=== PATIENT | female | born 1945 | race Caucasian/White ===

== ENCOUNTER 2016-09-22 23:16 | Inpatient (IN) | payer OTHER, MEDICAID ==
[2016-09-23] MEDS ORDERED: ROCEPHIN VIAL 1 GM 1 GM in NS 50 ML IV + SPIKE MINIBAG* 50 ML IV ONE (00:28)
[2016-09-23] MEDS ORDERED: NS 1000 ML 1,000 ML IV ONE (00:28)
--- NOTE | 2016-09-23 00:29 | DR.GENAD ---
HPI - PCP Primary Care Physician: boris - Complaint/Symptoms Chief Complaint Doctors Comments: Patient states has been doing good but family members states she has been having problems with her memory and everytime that happens she usually have cellulitis in her right leg. States she has been having nocturia x2 nightly. States she hit her head on the coffee table two days ago when she fell at home and she has been having a headache since. States she did not go to be evaluated after the fall. Family thinks the right leg is swollen and red compared to the left leg. Chief Complaint:: memory disoriented - Nurses notes reviewed Nurses Notes Review: Yes - Source History Provided: Patient, Family Member - Mode of Arrival Mode of Arrival: Ambulatory - Timing Onset of Chief Complaint: 09/22/16 Came on: Gradually - Duration Duration: Constant How lon Duration: Days - Location Location: diffuse headache - Severity Severity: Moderate - Modifying Factors Worsens:: nothing Improves:: nothing PMH - PMH Past Medical History: Yes Past Medical History: CVA, Dementia, Diabetes, Dyslipidemia, GERD, Hypertension Past Surgical History: No Surgical History: Unknown - Family History History of Family Medical Conditions: Yes Family Medical History: Diabetes Mellitus, Hypertension - Social History Does patient currently use any type of tobacco product: No Have you used tobacco products in the last 12 months: No Type of Tobacco Use: None Does any household member use tobacco: Yes Do you use any recreational Drugs:: No Lives With: Alone Lives Where: Home - infectious screening In the last 2 months have you had wt loss of >10#?: NO Have you had fever, night sweats or hemotysis?: No Have you traveled outside the country in the last 6 months?: No Isolation: Standard ROS - Review of Systems Constitutional: No Symptoms Reported, Fever, Weakness, Fatigue, Loss of Appetite. negative: See HPI, Chills, Diaphoresis, Malaise, Irritable, Other Eyes: No Symptoms Reported ENTM: No Symptoms Reported, Nose Discharge, Nose Congestion. negative: See HPI , Ear Pain, Ear Discharge, Pulling on Ears, Hearing Loss, Nose Pain, Epistaxis, Mouth Pain, Mouth Swelling, Loose Teeth, Drooling, Throat Pain, Throat Swelling , Ear Foreign Body Respiratoy: No Symptoms Reported. negative: See HPI, Productive Cough, Non- Productive Cough, Moist Cough, Dry Cough, Hacking Cough, Barking Cough, Brassy Cough, Orthopnea, Short of Breath, Stridor, Wheezing, Hemoptysis, Other Cardiovascular: No Symptoms Reported. negative: See HPI, Chest Pain, Edema, Palpitations, Syncope, Cyanosis, Skin Mottling, Other Gastrointestinal/Abdominal: No Symptoms Reported Genitourinary: No Symptoms Reported, Dysuria, Frequency. negative: See HPI, Discharge, Hematuria, Pain, Bleeding, Other Neurological: No Symptoms Reported, Headache, Weakness, Problems Walking. negative: See HPI, Anxiety, Depressed, Emotional Problems, Numbness, Paresthesia , Pre-existing Deficit, Seizure, Tingling, Tremors, Dizziness, Speech Problem, Other Musculoskeletal: No Symptoms Reported Integumentary: No Symptoms Reported Hematologic/Lymphatic: No Symptoms Reported Endocrine: No Symptoms Reported Psychiatric: No Symptoms Reported PE - Vital Signs Vitals: Temperature 101.7 F Pulse Rate 114 Respiratory Rate 16 Blood Pressure [Left Arm] 181/80 Blood Pressure [Right Arm] 105/54 Blood Pressure 163/81 O2 Sat by Pulse Oximetry 99 - General Limitations: No Limitations General Appearance: Alert, In No Apparent Distress - Head Head Exam: Normal Inspection, Atraumatic, Normocephalic - Eyes Eye exam: Normal Appearance, PERRL, EOMI. negative: Scleral Icterus, Conjunctival Injection, Nystagmus, Miosis, Mydrasis, Periorbital Swelling, Periorbital Tenderness, Other - ENT ENT Exam: Normal Exam, Normal Oropharynx, Normal External Ear Exam, Mucous Membranes Moist, TM's Normal Bilaterally External Ear Exam: Normal External Inspection TM/Canal Exam: Bilateral Normal Nose Exam: Normal Nose Exam Mouth Exam: Normal Inspection Throat Exam: Normal Inspection - Neck Neck Exam: Normal Inspection, Full ROM, Trachea Midline. negative: Tenderness, Meningismus, Lymphadenopathy, Thyromegaly, Other - Chest Chest Inspection: Normal Inspection, Symmetric Chest Wall Rise. negative: Tenderness, Rash, Abscess, Other - Respiratory Respiratory Exam: Normal Lung Sounds Bilat Respiratory Exam: Bilateral Clear to Auscultation - Cardiovascular Cardiovascular Exam: Regular Rate, Normal Rhythm, Normal Heart Sounds. negative : Bradycardia, Tachycardia, Irregular Rhythm, Systolic Murmur, Diastolic Murmur , Rubs, Gallop, Clicks, JVD, +S1, +S2, +S3, +S4, Other - Abdominal Exam Abdominal Exam: Normal Inspection, Normal Bowel Sounds, Soft Abdominal Tenderness: Suprapubic, Mild. negative: RUQ, RLQ, LUQ, LLQ, Epigastrium, Diffuse, Moderate, Severe, Other - Extremities Extremities Exam: Normal Inspection, Full ROM, Normal Capillary Refill. negative: Tenderness, Edema, Joint Swelling, Calf Tenderness, Other - Back Back Exam: Normal Inspection, Full ROM - Neurologic Neurological Exam: Alert, Oriented X3, CN II-XII Intact, Reflexes Normal. negative: Normal Gait (gait not tested) - Psychiatric Psychiatric Exam: Normal Affect, Normal Mood. negative: Depressed, Agitated, Anxious, Flat Affect, Manic, Homicidal Ideation, Suicidal Ideation, Other - Skin Skin Exam: Warm, Dry, Intact, Normal Color. negative: Rash, Cyanosis, Diaphoresis, Erythema, Pallor, Mottled, Other Course - Reevaluation 1st: Improved - Consultation Called: 03:02 Call Returned: 03:02 (Dr. Rivera to admit) - Education/Counseling Education/Counseling: Patient, Family Educated On: Treatment, Diagnosis, Prognosis, Needs for Follow Up ROR - Labs Reviewed Laboratory Results Reviewed?: Yes (All labs and x-ray results reviewed and discussed with patient and family) Result Diagrams: 09/23/16 00:40 09/23/16 00:40 Laboratory: WBC 24.2 X10^3/uL (3.6-10.0) H* 09/23/16 00:40 RBC 4.47 X10^6/uL (3.5-5.4) 09/23/16 00:40 Hgb 10.6 g/dL (12.0-16.0) L 09/23/16 00:40 Hct 33.7 % (36.0-47.0) L 09/23/16 00:40 MCV 75.4 fL (80.0-100.0) L 09/23/16 00:40 MCH 23.8 pg (27.0-34.0) L 09/23/16 00:40 MCHC 31.6 g/dL (33.0-35.0) L 09/23/16 00:40 RDW 18.7 % (11.6-16.5) H 09/23/16 00:40 Plt Count 283 X10^3/uL (150.0-450.0) 09/23/16 00:40 Plt Count Comment Adequate (ADEQUATE) 09/23/16 00:40 MPV 8.2 fL (7.4-11.0) 09/23/16 00:40 Neut % 92.6 % (42.0-75.0) H 09/23/16 00:40 Lymph % 2.6 % (21.0-51.0) L 09/23/16 00:40 [place] % 4.6 % (0.0-13.0) 09/23/16 00:40 Eos % 0.0 % (0.9-2.9) L 09/23/16 00:40 Baso % 0.2 % (0.2-1.0) 09/23/16 00:40 Neut # 22.4 x10^3/uL (2.2-4.8) H 09/23/16 00:40 Lymph # 0.6 X10^3/uL (1.3-2.9) L 09/23/16 00:40 [place] # 1.1 x10^3/uL (0.3-0.8) H 09/23/16 00:40 Eos # 0.0 x10^3/uL (0.0-0.2) 09/23/16 00:40 Baso # 0.1 X10^3/uL (0.0-0.1) 09/23/16 00:40 Absolute Nucleated RBC 0.0 /100WBC 09/23/16 00:40 Total Counted 100 09/23/16 00:40 Neutrophils % (Manual) 92 % (39-76) H 09/23/16 00:40 Band Neutrophils % 3 % (0-10) 09/23/16 00:40 Lymphocytes % (Manual) 3 % (13-43) L 09/23/16 00:40 Monocytes % (Manual) 2 % (4-9) L 09/23/16 00:40 Plt Morphology Comment Normal (NORMAL) 09/23/16 00:40 RBC Morphology Abnormal (NORMAL) A 09/23/16 00:40 Hypochromasia 1+ A 09/23/16 00:40 Anisocytosis Slight A 09/23/16 00:40 INR Target Range - 09/23/16 00:40 INR 0.98 (0.8-1.3) 09/23/16 00:40 PTT 26.8 SECONDS (22.9-36.5) 09/23/16 00:40 PTT Comment - 09/23/16 00:40 Sodium 137 mmol/L (136-145) 09/23/16 00:40 Corrected Sodium 141 mmol/L (136-145) 09/23/16 00:40 Potassium 3.6 mmol/L (3.5-5.1) 09/23/16 00:40 Chloride 100 mmol/L (98-107) 09/23/16 00:40 Carbon Dioxide 24.9 mmol/L (21-32) 09/23/16 00:40 BUN 11 mg/dL (7-18) 09/23/16 00:40 Creatinine 1.31 mg/dL (0.55-1.02) H 09/23/16 00:40 Est GFR (MDRD) Af Amer 51 (>60) L 09/23/16 00:40 Est GFR (MDRD) Non-Af 43 (>60) L 09/23/16 00:40 Glucose 270 mg/dL (65-99) H 09/23/16 00:40 Calcium 8.3 mg/dL (8.5-10.1) L 09/23/16 00:40 Corrected Calcium TNP 09/23/16 00:40 Magnesium 1.1 mg/dL (1.7-2.9) L 09/23/16 00:40 Total Bilirubin 0.40 mg/dL (0.2-1.0) 09/23/16 00:40 AST 14 Units/L (15-37) L 09/23/16 00:40 ALT 16 Units/L (12-78) 09/23/16 00:40 Alkaline Phosphatase 52 Units/L (46-116) 09/23/16 00:40 Creatine Kinase 87 Units/L (26-192) 09/23/16 00:40 CK-MB (CK-2) < 1.0 ng/mL (0-4.0) 09/23/16 00:40 CK/CKMB % Calc 1.2 % (<4) 09/23/16 00:40 Troponin I < 0.02 ng/mL (0-1.5) 09/23/16 00:40 Total Protein 8.0 g/dL (6.4-8.2) 09/23/16 00:40 Albumin 3.7 g/dL (3.4-5.0) 09/23/16 00:40 Globulin 4.3 g/dL (2.5-4.5) 09/23/16 00:40 Albumin/Globulin Ratio 0.9 Ratio (1.1-2.1) L 09/23/16 00:40 Amylase 32 Units/L (25-115) 09/23/16 00:40 Lipase 120 Units/L (73-393) 09/23/16 00:40 Specimen Type Clean catch urine 09/23/16 01:31 Urine Color Yellow (YELLOW) 09/23/16 01:31 Urine Appearance Clear (CLEAR) 09/23/16 01:31 Urine pH 5.0 (5.0 - 8.0) 09/23/16 01:31 Ur Specific [place] 1.015 (1.000-1.030) 09/23/16 01:31 Urine Protein 1+ (NEGATIVE) 09/23/16 01:31 Urine Glucose (UA) 3+ (NEGATIVE) 09/23/16 01:31 Urine Ketones Negative (NEGATIVE) 09/23/16 01:31 Urine Occult Blood 1+ (NEGATIVE) 09/23/16 01:31 Urine Nitrite Negative (NEGATIVE) 09/23/16 01:31 Urine Bilirubin Negative (NEGATIVE) 09/23/16 01:31 Urine Urobilinogen Normal (NORMAL) 09/23/16 01:31 Ur Leukocyte Esterase 1+ (NEGATIVE) 09/23/16 01:31 Urine RBC 0-3 /HPF (NEGATIVE) 09/23/16 01:31 Urine WBC 2-6 /HPF (NEGATIVE) 09/23/16 01:31 Ur Squamous Epith Cells Few /HPF (NEGATIVE) 09/23/16 01:31 Urine Bacteria Trace /HPF (NEGATIVE) 09/23/16 01:31 Ur Culture Indicated? Yes/culture set up 09/23/16 01:31 Urine Opiates Screen Negative (NEG=<300) 09/23/16 01:31 Urine Methadone Screen Negative (NEG=<300) 09/23/16 01:31 Ur Barbiturates Screen Negative (NEG=<200) 09/23/16 01:31 Ur Phencyclidine Scrn Negative (NEG=<25) 09/23/16 01:31 Ur Amphetamines Screen Negative (NEG=<1000) 09/23/16 01:31 U Benzodiazepines Scrn Negative (NEG=<200) 09/23/16 01:31 Urine Cocaine Screen Negative (NEG=<300) 09/23/16 01:31 U Marijuana (THC) Screen Negative (NEG=<50) 09/23/16 01:31 Streptococcus Screen Positive (NEGATIVE) A 09/23/16 01:31 - XRAY XRAY Interpreted by: Radiologist (CT head: unchanged atrophy and microangiopathy. No acute intracranial abnormality) XRAY Findings: CXR: cardiomegaly, hiatal hernia and COPD - Diagnosis Discharge Problem: Cellulitis of right leg, Microcytic anemia, Diabetes mellitus, Essential hypertension, Chronic kidney disease, SIRS (systemic inflammatory response syndrome), COPD (chronic obstructive pulmonary disease), Streptococcus pharyngitis Leukocytosis Qualifiers: Leukocytosis type: unspecified Qualified Code(s): D72.829 - Elevated white blood cell count, unspecified - Discharge Plan Disposition: 09 ADMITTED INPATIENT Condition: Stable - Follow ups/Referrals Follow ups/Referrals: Micheal Neir [Primary Care Provider] - 3 days - Instructions
[2016-09-23] MEDS ORDERED: NS 1000 ML 1,000 ML ONE (00:33)
[2016-09-23] MEDS ORDERED: ROCEPHIN VIAL 1 GM ONE (00:34)
[2016-09-23] MEDS ORDERED: NS 50 ML IV + SPIKE MINIBAG* 50 ML IV ONE (00:35)
[2016-09-23 01:00] LABS: BASOPHILS # (AUTO) 0.1 X10^3/uL (0.0-0.1); BASOPHILS % (AUTO) 0.2 % (0.2-1.0); HEMATOCRIT 33.7 % (36.0-47.0); HEMOGLOBIN 10.6 g/dL (12.0-16.0); LYMPHOCYTES # (AUTO) 0.6 X10^3/uL (1.3-2.9); LYMPHOCYTES % (AUTO) 2.6 % (21.0-51.0); MEAN CORPUSCULAR HEMOGLOBIN 23.8 pg (27.0-34.0); MEAN CORPUSCULAR HGB CONC 31.6 g/dL (33.0-35.0); MEAN CORPUSCULAR VOLUME 75.4 fL (80.0-100.0); MEAN PLATELET VOLUME 8.2 fL (7.4-11.0); MONOCYTES # (AUTO) 1.1 x10^3/uL (0.3-0.8); MONOCYTES % (AUTO) 4.6 % (0.0-13.0); NEUTROPHILS # (AUTO) 22.4 x10^3/uL (2.2-4.8); NEUTROPHILS % (AUTO) 92.6 % (42.0-75.0); PLATELET COUNT 283 X10^3/uL (150.0-450.0); RED BLOOD COUNT 4.47 X10^6/uL (3.5-5.4); RED CELL DISTRIBUTION WIDTH 18.7 % (11.6-16.5)
[2016-09-23 01:12] LABS: BLOOD UREA NITROGEN 11 mg/dL (7-18); CALCIUM 8.3 mg/dL (8.5-10.1); CARBON DIOXIDE 24.9 mmol/L (21-32); CHLORIDE 100 mmol/L (98-107); COR NA(FOR HYPERGLY) 141 mmol/L (136-145); CREATININE 1.31 mg/dL (0.55-1.02); GLUCOSE 270 mg/dL (65-99); SODIUM 137 mmol/L (136-145); TROPONIN I < 0.02 ng/mL (0-1.5); WHITE BLOOD COUNT 24.2 X10^3/uL (3.6-10.0); eGFR BLACK RACES 51 (>60); eGFR NON BLACK RACES 43 (>60)
[2016-09-23] MEDS ORDERED: TYLENOL 325 MG TAB PO ONE ×2 (01:15→01:17)
[2016-09-23 01:16] LABS: ALANINE AMINOTRANSFERASE 16 Units/L (12-78); ALBUMIN 3.7 g/dL (3.4-5.0); ALKALINE PHOSPHATASE 52 Units/L (46-116); AMYLASE 32 Units/L (25-115); ASPARTATE AMINO TRANSFERASE 14 Units/L (15-37); CKMB % 1.2 % (<4); CREATINE KINASE 87 Units/L (26-192); CREATINE KINASE MB < 1.0 ng/mL (0-4.0); LIPASE 120 Units/L (73-393); MAGNESIUM 1.1 mg/dL (1.7-2.9)
[2016-09-23 01:23] LABS: ANISOCYTOSIS SLIGHT; BAND NEUTROPHILS % 3 % (0-10); HYPOCHROMASIA 1+; PLATELET MORPHOLOGY COMMENT NORMAL (NORMAL)
[2016-09-23 01:48] LABS: BILIRUBIN,URINE NEGATIVE (NEGATIVE); BLOOD/HEMOGLOBIN,URINE 1+ (NEGATIVE); GLUCOSE, URINE 3+ (NEGATIVE); KETONES,URINE NEGATIVE (NEGATIVE); LEUKOCYTE ESTERASE ,URINE 1+ (NEGATIVE); NITRITES,URINE NEGATIVE (NEGATIVE); PROTEIN,URINE 1+ (NEGATIVE); UROBILINOGEN,URINE NORMAL (NORMAL)
--- NOTE | 2016-09-23 01:57 | CT ---
CT head without contrast Indication: Pain after fall 2 days prior. Comparison: October 08, [address] and April 03, 2016 MR brain. Technique: Axial images from the skullbase to the vertex without contrast. Coronal and sagittal refo rmats provided. Findings: There is no acute intracranial hemorrhage, mass or mass effect. No extra-axial fluid colle ction or abnormal area of hypoattenuation to suggest infarction seen. Ventricles and sulci show ex v acuo enlargement. Periventricular white matter hypoattenuation is noted. Review of bone windows show s no osseous lesion. Paranasal sinuses and mastoid air cells are clear where visualized. No fracture seen. Impression: 1. Unchanged atrophy and microangiopathy, similar to the prior. 2. No acute intracranial abnormality otherwise. Reported By:
[2016-09-23 02:13] LABS: APPEARANCE,URINE CLEAR (CLEAR); BACTERIA,URINE TRACE /HPF (NEGATIVE); COLOR,URINE YELLOW (YELLOW); RBC,URINE 0-3 /HPF (NEGATIVE); SQUAMOUS EPITHELIAL CELL,UR FEW /HPF (NEGATIVE)
[2016-09-23] MEDS ORDERED: VANCOMYCIN HCL 1 GM VIAL IV STA (03:03)
--- NOTE | 2016-09-23 03:05 | RAD ---
Chest AP portable Indication: Fever and altered mental status. Findings: There is hiatal hernia. There is cardiomegaly. Pleural thickening is seen in the apex bila terally. COPD change suggested. No large pneumothorax or consolidation seen. Impression: Cardiomegaly, hiatal hernia and COPD change pleural thickening in the apex is bilaterall y. Reported By:
[2016-09-23] MEDS ORDERED: VANCOMYCIN 1 GM PREMIX (ADDVANTAGE) 250 ML IV ONE (03:24)
[2016-09-23] MEDS ORDERED: NORCO 5/325 MG TAB PO PRN (03:26)
[2016-09-23] MEDS ORDERED: PHENERGAN TAB 25 MG PO PRN (03:26)
[2016-09-23] MEDS ORDERED: MOTRIN TAB 600 MG PO PRN (03:26)
[2016-09-23 04:57] VITALS: BMI 28.5
[2016-09-23 06:10] LABS: BASOPHILS # (AUTO) 0.1 X10^3/uL (0.0-0.1); PLATELET COUNT 274 X10^3/uL (150.0-450.0)
[2016-09-23 06:22] LABS: BASOPHILS % (AUTO) 0.4 % (0.2-1.0); HEMATOCRIT 31.2 % (36.0-47.0); HEMOGLOBIN 10.1 g/dL (12.0-16.0); LYMPHOCYTES % (AUTO) 4.2 % (21.0-51.0); MEAN CORPUSCULAR HEMOGLOBIN 24.3 pg (27.0-34.0); MEAN CORPUSCULAR HGB CONC 32.3 g/dL (33.0-35.0); MEAN CORPUSCULAR VOLUME 75.1 fL (80.0-100.0); MEAN PLATELET VOLUME 8.6 fL (7.4-11.0); MONOCYTES % (AUTO) 4.2 % (0.0-13.0); NEUTROPHILS # (AUTO) 22.4 x10^3/uL (2.2-4.8); NEUTROPHILS % (AUTO) 91.2 % (42.0-75.0); RED BLOOD COUNT 4.16 X10^6/uL (3.5-5.4); RED CELL DISTRIBUTION WIDTH 19.1 % (11.6-16.5)
[2016-09-23] MEDS: NS 1/2 1000 ML IV 1,000 ML IV SCH ×3 (06:25→21:32)
[2016-09-23] MEDS ORDERED: NS 100 ML IV + SPIKE MINIBAG* 100 ML IV ONE (06:31)
[2016-09-23] MEDS ORDERED: ZOSYN VIAL 3.375 GM IV ONE (06:31)
[2016-09-23] MEDS: GLUCOTROL PO SCH ×2 (06:40→16:51)
[2016-09-23] MEDS: ZOSYN VIAL 3.375 GM 3.375 GM in NS 100 ML IV + SPIKE MINIBAG* 100 ML IV SCH ×3 (06:40→21:28)
[2016-09-23 06:44] LABS: ALANINE AMINOTRANSFERASE 14 Units/L (12-78); ALBUMIN 3.4 g/dL (3.4-5.0); ALKALINE PHOSPHATASE 45 Units/L (46-116); ASPARTATE AMINO TRANSFERASE 16 Units/L (15-37); BLOOD UREA NITROGEN 10 mg/dL (7-18); CALCIUM 8.5 mg/dL (8.5-10.1); CARBON DIOXIDE 23.3 mmol/L (21-32); CHLORIDE 101 mmol/L (98-107); COR NA(FOR HYPERGLY) 139 mmol/L (136-145); CREATININE 1.09 mg/dL (0.55-1.02); GLUCOSE 165 mg/dL (65-99); SODIUM 137 mmol/L (136-145); TOTAL PROTEIN 7.7 g/dL (6.4-8.2); eGFR BLACK RACES > 60 (>60); eGFR NON BLACK RACES 53 (>60)
[2016-09-23 06:45] LABS: WHITE BLOOD COUNT 24.6 X10^3/uL (3.6-10.0)
[2016-09-23 06:50] LABS: PLATELET MORPHOLOGY COMMENT NORMAL (NORMAL)
[2016-09-23] MEDS ORDERED: POTASSIUM CHLORIDE LIQ 20 MEQ UDC PO PRN (07:58)
[2016-09-23] MEDS ORDERED: K-DUR TAB 20 MEQ PO PRN (07:58)
[2016-09-23] MEDS ORDERED: K-RIDER 10 MEQ/NS 100 ML 10 MEQ/100 ML BAG IV PRN (07:58)
[2016-09-23] MEDS ORDERED: K-LYTE EFFERVESCENT PO PRN (07:58)
[2016-09-23] MEDS: ZEBETA TAB 5 MG PO SCH (08:14)
[2016-09-23] MEDS: HYDROCHLOROTHIAZIDE 25 MG TAB PO SCH (08:14)
[2016-09-23] MEDS: LOVENOX INJ 40 MG SYR SC SCH (08:17)
[2016-09-23] MEDS ORDERED: HYDROCHLOROTHIAZIDE PO SCH (09:00)
[2016-09-23] MEDS ORDERED: BISOPROL PO SCH (09:00)
[2016-09-23] MEDS ORDERED: [UNRECOGNIZED DRUG - OTHER] PO SCH (09:00)
[2016-09-23] MEDS ORDERED: VANCOMYCIN HCL 500 MG VIAL 500 MG in D5W 100 ML IV 100 ML IV SCH (09:00)
[2016-09-23] MEDS ORDERED: GLIPIZIDE 5 MG PO SCH (09:00)
[2016-09-23] MEDS ORDERED: PEPCID 20 MG IV PREMIX* 20 MG/50 ML BAG IV SCH (09:00)
[2016-09-23] MEDS ORDERED: NS 1/2 1000 ML IV 1,000 ML IV ONE ×2 (14:02→21:39)
[2016-09-23] MEDS: ECOTRIN TAB 325 MG PO SCH (16:51)
[2016-09-23] MEDS: PriLOSEC PO SCH (16:51)
[2016-09-23] MEDS ORDERED: PATIENT'S HOME MEDICATION (Famotidine [Famotidine] 40 MG) PO SCH (21:00)
[2016-09-23] MEDS ORDERED: VANCOMYCIN HCL 500 MG VIAL 750 MG in D5W 250 ML IV 250 ML IV SCH ×4 (21:00)
[2016-09-23] MEDS ORDERED: PEPCID TAB 20 MG PO SCH (21:00)
[2016-09-23] MEDS ORDERED: COZAAR PO SCH (21:00)
[2016-09-23] MEDS ORDERED: NORVASC TAB 10 MG PO SCH (21:00)
[2016-09-23] MEDS ORDERED: NEURONTIN CAP 300 MG PO SCH (21:00)
[2016-09-24] MEDS: NS 1/2 1000 ML IV 1,000 ML IV SCH ×2 (04:14→14:12)
[2016-09-24] MEDS: ZOSYN VIAL 3.375 GM 3.375 GM in NS 100 ML IV + SPIKE MINIBAG* 100 ML IV SCH ×2 (05:52→14:12)
[2016-09-24] MEDS: GLUCOTROL PO SCH (05:59)
[2016-09-24 06:14] LABS: ALANINE AMINOTRANSFERASE 15 Units/L (12-78); ALKALINE PHOSPHATASE 47 Units/L (46-116); ASPARTATE AMINO TRANSFERASE 18 Units/L (15-37); BLOOD UREA NITROGEN 9 mg/dL (7-18); CARBON DIOXIDE 26.9 mmol/L (21-32); CHLORIDE 104 mmol/L (98-107); COR CA(FOR HYPOALB) 8.8 mg/dL (8.5-10.1); CREATININE 0.88 mg/dL (0.55-1.02); GLUCOSE 86 mg/dL (65-99); SODIUM 140 mmol/L (136-145); eGFR BLACK RACES > 60 (>60); eGFR NON BLACK RACES > 60 (>60)
[2016-09-24 06:17] LABS: BASOPHILS # (AUTO) 0.1 X10^3/uL (0.0-0.1); BASOPHILS % (AUTO) 0.5 % (0.2-1.0); EOSINOPHILS % (AUTO) 0.1 % (0.9-2.9); HEMATOCRIT 30.4 % (36.0-47.0); HEMOGLOBIN 9.8 g/dL (12.0-16.0); LYMPHOCYTES # (AUTO) 2.3 X10^3/uL (1.3-2.9); LYMPHOCYTES % (AUTO) 19.7 % (21.0-51.0); MEAN CORPUSCULAR HEMOGLOBIN 24.4 pg (27.0-34.0); MEAN CORPUSCULAR HGB CONC 32.3 g/dL (33.0-35.0); MEAN CORPUSCULAR VOLUME 75.7 fL (80.0-100.0); MEAN PLATELET VOLUME 8.4 fL (7.4-11.0); MONOCYTES # (AUTO) 0.7 x10^3/uL (0.3-0.8); MONOCYTES % (AUTO) 6.4 % (0.0-13.0); NEUTROPHILS # (AUTO) 8.4 x10^3/uL (2.2-4.8); NEUTROPHILS % (AUTO) 73.3 % (42.0-75.0); PLATELET COUNT 215 X10^3/uL (150.0-450.0); RED BLOOD COUNT 4.02 X10^6/uL (3.5-5.4); RED CELL DISTRIBUTION WIDTH 19.1 % (11.6-16.5); WHITE BLOOD COUNT 11.4 X10^3/uL (3.6-10.0)
[2016-09-24 07:05] LABS: PLATELET MORPHOLOGY COMMENT NORMAL (NORMAL)
[2016-09-24] MEDS: PriLOSEC PO SCH (09:46)
[2016-09-24] MEDS: ECOTRIN TAB 325 MG PO SCH (09:46)
[2016-09-24] MEDS: HYDROCHLOROTHIAZIDE 25 MG TAB PO SCH (09:46)
[2016-09-24] MEDS: ZEBETA TAB 5 MG PO SCH (09:46)
[2016-09-24] MEDS: LOVENOX INJ 40 MG SYR SC SCH (09:50)
[2016-09-24 11:38] VITALS: BP 130/57
[2016-09-24] MEDS ORDERED: NS 1/2 1000 ML IV 1,000 ML IV ONE (14:02)
--- NOTE | 2016-10-04 22:43 | DR.CARTERS ---
Short Stay Summary - Short Stay Summary for: Short Stay Summary for Date of:: 09/23/16 - Admission Date Date of Admission: 09/23/16 - Discharge Date Discharge Date: 09/24/16 - Admission Diagnoses (1) Cellulitis of right leg Status: Acute (2) Chronic kidney disease Status: Acute (3) Leucocytosis Status: Acute (4) SIRS (systemic inflammatory response syndrome) Status: Acute (5) Streptococcus pharyngitis Status: Acute (6) UTI (urinary tract infection) Status: Acute (7) Diabetes mellitus Status: Chronic - Hospital Course Hospital Course: Patient presented to ED with Patient stating she has been doing good but family members states she has been having problems with her memory and everytime that happens she usually have cellulitis in her right leg. States she has been having nocturia x2 nightly. States she hit her head on the coffee table two days ago when she fell at home and she has been having a headache since. States she was not evaluated after the fall. The patient did have aCT Head with no acute findings. Patient did have a markedly elevated WBC. Patient started on antibiotics. Patient did have improvement and was felt stable and was discharged home to be followed up on an op basis. - Discharge Medications Discharge Medications: Famotidine 40 mg PO HS 09/23/16 [History] Gabapentin 300 mg PO HS 09/23/16 [History] Levofloxacin [LEVAQUIN TAB 500 MG *] 500 mg PO DAILY #7 tab 09/24/16 [Rx] - Discharge Plan Disposition: 01 HOME, SELF-CARE Condition: Stable Prescriptions: Levofloxacin [LEVAQUIN TAB 500 MG *] 500 mg PO DAILY #7 tab - Follow up/Referrals Follow up/Referrals: Micheal Neri [Primary Care Provider] - 3 days - Instructions Instructions: Cellulitis, Strep Throat, [id number], Pharyngitis, [id number]
== END 2016-09-24 16:20 | disposition home or self-care (01) | DRG 603 ==
LOC: ER 23:16 → MED/SURG 09-23 03:24
PROVIDERS: ADMIT Internal Medicine; ATTEND Internal Medicine
DX: L03.115 Cellulitis of right lower limb (principal); J02.0 Streptococcal pharyngitis; R65.10 Systemic inflammatory response syndrome (SIRS) of non-infectious origin without acute organ dysfunction; N18.9 Chronic kidney disease, unspecified; R94.4 Abnormal results of kidney function studies; R94.31 Abnormal electrocardiogram [ECG] [EKG]; D72.828 Other elevated white blood cell count; E11.65 Type 2 diabetes mellitus with hyperglycemia; J44.9 Chronic obstructive pulmonary disease, unspecified; I12.9 Hypertensive chronic kidney disease with stage 1 through stage 4 chronic kidney disease, or unspecified chronic kidney disease; D64.89 Other specified anemias
CPT/HCPCS: 36415; 70450; 71010; 80053; 80307; 81001; 82150; 82550; 82553; 83605; 83690; 83735; 84132; 84484; 85025; 85610; 85730; 87040; 87086; 87880; 93005; 96365; 96367; 96374; 96375; 99221; 99284; A4216; A4222; S0028; G0434; J0696; J1650; J2543; J3370

== ENCOUNTER 2017-01-15 08:08 | Day surgery (SDC) | payer MEDICAID, OTHER ==
[2017-01-15] MEDS ORDERED: TETRACAINE 0.5% OPHTH 1 DOSE AFFEYE ONE ×4 (08:30→11:45)
[2017-01-15] MEDS ORDERED: DUREZOL OPHTH 1 DOSE AFFEYE ONE ×2 (08:30→08:34)
[2017-01-15] MEDS ORDERED: PROLENSA OPHTH 1 DOSE AFFEYE ONE ×2 (08:35→08:40)
[2017-01-15] MEDS ORDERED: VIGAMOX 0.5% OPHTH 1 DOSE AFFEYE ONE ×7 (08:35→11:57)
[2017-01-15] MEDS ORDERED: ALPHAGAN-P OPHTH 1 DOSE AFFEYE ONE ×2 (08:35→08:41)
[2017-01-15] MEDS ORDERED: CYCLOGYL 1% OPHTH 1 DOSE OP ONE ×6 (08:36→08:47)
[2017-01-15] MEDS ORDERED: VISINE-A OPHTH 1 DOSE AFFEYE ONE ×2 (08:36→08:42)
[2017-01-15] MEDS ORDERED: MYDRIACIL OPHTH 1 DOSE AFFEYE ONE ×6 (08:36→08:47)
[2017-01-15] MEDS ORDERED: AK-DILATE 2.5% OPHTH 1 DOSE OP ONE ×6 (08:36→08:47)
[2017-01-15] MEDS ORDERED: NS 500 ML IV 500 ML IV ONE (08:47)
[2017-01-15] MEDS ORDERED: BETADINE OPHTH SOLN 5% EACHEYE ONE (11:38)
[2017-01-15] MEDS ORDERED: BSS OPHTH (PLAIN) 500 ML with VANCOMYCIN HCL 500 MG VIAL 25 MG, ADRENALINE CHL INJ 1 MG IR ONE ×3 (11:45)
[2017-01-15] MEDS ORDERED: XYLOCAINE-MPF 1% IJ ONE (11:45)
[2017-01-15] MEDS ORDERED: ADRENALINE CHL INJ IJ ONE (11:45)
[2017-01-15] MEDS ORDERED: DUOVISC IO ONE (11:45)
[2017-01-15 14:08] VITALS: BP 164/82
[2017-01-15] MEDS ORDERED: DIPRIVAN VIAL ONE (15:33)
== END 2017-01-15 12:20 | disposition home or self-care (01) ==
LOC: SURG1 08:08
PROVIDERS: ATTEND Ophthalmology
PROC: 08DK3ZZ Extraction of Left Lens, Percutaneous Approach (ICD-10-PCS; principal; 2017-01-15 14:15)
PROC: 08RK3JZ Replacement of Left Lens with Synthetic Substitute, Percutaneous Approach (ICD-10-PCS; principal; 2017-01-15 14:15)
DX: H25.12 Age-related nuclear cataract, left eye (principal); H25.012 Cortical age-related cataract, left eye
CPT/HCPCS: 99100; A4217; J0170; J3370; J3490

== ENCOUNTER 2017-02-05 07:09 | Day surgery (SDC) | payer OTHER ==
[2017-02-05] MEDS ORDERED: NS 500 ML IV 500 ML IV ONE (07:20)
[2017-02-05] MEDS ORDERED: TETRACAINE 0.5% OPHTH 1 DOSE AFFEYE ONE ×3 (07:30→09:12)
[2017-02-05] MEDS ORDERED: VIGAMOX 0.5% OPHTH 1 DOSE AFFEYE ONE ×4 (07:31→09:17)
[2017-02-05] MEDS ORDERED: PROLENSA OPHTH 1 DOSE AFFEYE ONE (07:42)
[2017-02-05] MEDS ORDERED: ALPHAGAN-P OPHTH 1 DOSE AFFEYE ONE (07:43)
[2017-02-05] MEDS ORDERED: MYDRIACIL OPHTH 1 DOSE AFFEYE ONE ×2 (07:45→07:50)
[2017-02-05] MEDS ORDERED: AK-DILATE 2.5% OPHTH 1 DOSE OP ONE ×2 (07:45→07:50)
[2017-02-05] MEDS ORDERED: CYCLOGYL 1% OPHTH 1 DOSE OP ONE ×2 (07:45→07:50)
[2017-02-05] MEDS ORDERED: BETADINE OPHTH SOLN 5% EACHEYE ONE (09:12)
[2017-02-05] MEDS ORDERED: XYLOCAINE-MPF 1% IJ ONE ×2 (09:18→09:32)
[2017-02-05] MEDS ORDERED: ADRENALINE CHL INJ IJ ONE ×2 (09:18→09:32)
[2017-02-05] MEDS ORDERED: DUOVISC IO ONE ×2 (09:18→09:32)
[2017-02-05] MEDS ORDERED: BSS OPHTH (PLAIN) 500 ML with VANCOMYCIN HCL 500 MG VIAL 25 MG, ADRENALINE CHL INJ 1 MG IR ONE ×6 (09:19)
[2017-02-05] MEDS ORDERED: DIPRIVAN VIAL ONE (09:46)
[2017-02-05 10:00] VITALS: BP 191/86
== END 2017-02-05 10:04 | disposition home or self-care (01) ==
LOC: SURG1 07:09
PROVIDERS: ATTEND Ophthalmology
PROC: 08RJ3JZ Replacement of Right Lens with Synthetic Substitute, Percutaneous Approach (ICD-10-PCS; principal; 2017-02-05 07:30)
PROC: 08DJ3ZZ Extraction of Right Lens, Percutaneous Approach (ICD-10-PCS; principal; 2017-02-05 07:30)
DX: H25.11 Age-related nuclear cataract, right eye (principal); H25.011 Cortical age-related cataract, right eye
CPT/HCPCS: 99100; A4217; J0170; J3370; J3490

== ENCOUNTER 2017-07-12 12:40 | Emergency (ER) | payer OTHER ==
[2017-07-12 12:49] VITALS: BP 147/68; BMI 30.8
--- NOTE | 2017-07-12 13:06 | DR.GENAD ---
HPI - PCP Primary Care Physician: NANDO - Complaint/Symptoms Chief Complaint:: PT C/O RT LOWER LEG, RT KNEE, AND LOWER BACK PAIN FROM A FALL. PT STATES SHE TRIPPED AND FELL TODAY. PT STATES SHE HAS NOT BEEN FEELING VERY WELL AND HER SUGAR HAS BEEN UP. - Nurses notes reviewed Nurses Notes Review: Yes - Source History Provided: Patient - Mode of Arrival Mode of Arrival: Wheelchair - Timing Onset of Chief Complaint: 07/11/17 PMH - PMH Past Medical History: Yes Past Medical History: CVA, Dementia, Diabetes, Dyslipidemia, GERD, Hypertension Past Surgical History: Yes Surgical History: Unknown Past Surgical History Comment: CATARACT'S SURGERY - Family History History of Family Medical Conditions: Yes Family Medical History: Diabetes Mellitus, Hypertension - Social History Does any household member use tobacco: No Alcohol Use: None Do you use any recreational Drugs:: No Lives With: Family Lives Where: Home - infectious screening In the last 2 months have you had wt loss of >10#?: NO Have you had fever, night sweats or hemotysis?: No Have you traveled outside the country in the last 6 months?: No Isolation: Standard ROS - Review of Systems Constitutional: No Symptoms Reported Eyes: No Symptoms Reported ENTM: No Symptoms Reported Respiratoy: No Symptoms Reported Cardiovascular: No Symptoms Reported Gastrointestinal/Abdominal: No Symptoms Reported Genitourinary: No Symptoms Reported Neurological: No Symptoms Reported Musculoskeletal: Back Pain, Leg (rt.), Knee (rt.) Integumentary: No Symptoms Reported Hematologic/Lymphatic: No Symptoms Reported Endocrine: No Symptoms Reported Psychiatric: No Symptoms Reported All Other Systems: Reviewed and Negative PE - Vital Signs Vitals: Temperature 102.1 F Pulse Rate 106 Respiratory Rate 18 Blood Pressure [Left Arm] 130/57 Blood Pressure [Right Arm] 115/55 Blood Pressure 147/68 O2 Sat by Pulse Oximetry 96 - General Limitations: No Limitations General Appearance: Alert, In No Apparent Distress - Head Head Exam: Normal Inspection - Eyes Eye exam: Normal Appearance - ENT ENT Exam: Normal Exam - Neck Neck Exam: Normal Inspection - Chest Chest Inspection: Normal Inspection - Respiratory Respiratory Exam: Normal Lung Sounds Bilat - Cardiovascular Cardiovascular Exam: Regular Rate, Normal Rhythm, +S1, +S2 - Abdominal Exam Abdominal Exam: Normal Inspection, Normal Bowel Sounds, Soft - Extremities Extremities Exam: Normal Inspection - Back Back Exam: Normal Inspection - Neurologic Neurological Exam: Alert, Other (she's pleasantly confused some) - Psychiatric Psychiatric Exam: Normal Affect, Normal Mood - Skin Skin Exam: Warm, Dry, Intact, Normal Color Course - Reevaluation 1st: Improved ROR - Labs Reviewed Result Diagrams: 07/12/17 13:31 Laboratory: Sodium 133 mmol/L (136-145) L 07/12/17 13:31 Corrected Sodium 137 mmol/L (136-145) 07/12/17 13:31 Potassium 3.4 mmol/L (3.5-5.1) L 07/12/17 13:31 Chloride 96 mmol/L (98-107) L 07/12/17 13:31 Carbon Dioxide 25.2 mmol/L (21-32) 07/12/17 13:31 BUN 14 mg/dL (7-18) 07/12/17 13:31 Creatinine 1.27 mg/dL (0.55-1.02) H 07/12/17 13:31 Est GFR (MDRD) Af Amer 53 (>60) L 07/12/17 13:31 Est GFR (MDRD) Non-Af 44 (>60) L 07/12/17 13:31 Glucose 285 mg/dL (65-99) H 07/12/17 13:31 Calcium 8.2 mg/dL (8.5-10.1) L 07/12/17 13:31 Corrected Calcium 8.8 mg/dL (8.5-10.1) 07/12/17 13:31 Total Bilirubin 0.60 mg/dL (0.2-1.0) 07/12/17 13:31 AST 16 Units/L (15-37) 07/12/17 13:31 ALT 16 Units/L (12-78) 07/12/17 13:31 Alkaline Phosphatase 65 Units/L (46-116) 07/12/17 13:31 Total Protein 7.6 g/dL (6.4-8.2) 07/12/17 13:31 Albumin 3.3 g/dL (3.4-5.0) L 07/12/17 13:31 Globulin 4.3 g/dL (2.5-4.5) 07/12/17 13:31 Albumin/Globulin Ratio 0.8 Ratio (1.1-2.1) L 07/12/17 13:31 Specimen Type Clean catch urine 07/12/17 13:00 Urine Color Yellow (YELLOW) 07/12/17 13:00 Urine Appearance Hazy (CLEAR) 07/12/17 13:00 Urine pH 5.0 (5.0 - 8.0) 07/12/17 13:00 Ur Specific [place] 1.020 (1.000-1.030) 07/12/17 13:00 Urine Protein 3+ (NEGATIVE) 07/12/17 13:00 Urine Glucose (UA) 1+ (NEGATIVE) 07/12/17 13:00 Urine Ketones 1+ (NEGATIVE) 07/12/17 13:00 Urine Occult Blood 3+ (NEGATIVE) 07/12/17 13:00 Urine Nitrite Negative (NEGATIVE) 07/12/17 13:00 Urine Bilirubin 1+ (NEGATIVE) 07/12/17 13:00 Urine Urobilinogen 1+ (NORMAL) 07/12/17 13:00 Ur Leukocyte Esterase 3+ (NEGATIVE) 07/12/17 13:00 - XRAY XRAY Interpreted by: Radiologist (X-ray, rt. knee: moderate degenerative medial/ lateral compartment narrowing; CT Scain Brain: no acute findings, chronic small vessel ischemic changes. L/S X-ray: chronic compression deformity at T11, nulti- level degenerative deformity. ) - Diagnosis Discharge Problem: Fever, UTI (urinary tract infection), Fall at home - Discharge Plan Disposition: 01 HOME, SELF-CARE Condition: Stable - Follow ups/Referrals Follow ups/Referrals: Micheal Neri [Primary Care Provider] - 3 days - Instructions Instructions: Urinary Tract Infection, Adult, Fall Prevention in Hospitals, Adult, Fever, Adult, [id number]
[2017-07-12 13:21] LABS: BILIRUBIN,URINE 1+ (NEGATIVE); BLOOD/HEMOGLOBIN,URINE 3+ (NEGATIVE); GLUCOSE, URINE 1+ (NEGATIVE); KETONES,URINE 1+ (NEGATIVE); LEUKOCYTE ESTERASE ,URINE 3+ (NEGATIVE); NITRITES,URINE NEGATIVE (NEGATIVE); PROTEIN,URINE 3+ (NEGATIVE); UROBILINOGEN,URINE 1+ (NORMAL)
[2017-07-12 13:23] LABS: APPEARANCE,URINE HAZY (CLEAR); COLOR,URINE YELLOW (YELLOW)
--- NOTE | 2017-07-12 13:34 | RAD ---
HISTORY: Injury, fall, right knee pain Study: Right knee AP and lateral Comparison: None Findings: There is no evidence for acute bone or acute joint abnormality. No fracture, lytic, or blastic lesion is identified. No joint erosion or joint effusion is present. There is moderate degenerative medial and lateral compartment narrowing. IMPRESSION: No acute traumatic abnormality Moderate degenerative medial and lateral compartment narrowing Reported By:
--- NOTE | 2017-07-12 13:36 | CT ---
HISTORY: Fall last night Study: CT brain without contrast Comparison: September 23, 2016 Technique: Multiple axial images of the brain were obtained from the skull base to the vertex without administra tion of IV contrast. Findings: No acute intraparenchymal hemorrhage or mass can be identified. No extra-axial fluid collections are seen. No alteration in the attenuation of the brain parenchyma can be identified to suggest acute o r subacute ischemic change. The ventricles, sulci, and cisterns demonstrate an appearance consistent with a mild degree of generalized atrophy. Patchy and confluent areas of decreased attenuation are again seen within the periventricular, subcortical, and subinsular white matter similar to prior exam in keeping with changes of chronic small vessel ischemic disease. If symptoms or clinical concern pe rsist recommend continued follow-up for further evaluation. IMPRESSION: No acute intracranial process can be identified. Mild generalized atrophy with findings consistent with changes of chronic small vessel ischemic disea se Reported By:
[2017-07-12] MEDS ORDERED: TYLENOL 325 MG TAB PO ONE ×2 (13:41→13:43)
[2017-07-12] MEDS ORDERED: AUGMENTIN 500 MG/125 MG TAB PO ONE ×2 (13:43→13:46)
[2017-07-12 13:49] LABS: ALBUMIN 3.3 g/dL (3.4-5.0); CALCIUM 8.2 mg/dL (8.5-10.1); CARBON DIOXIDE 25.2 mmol/L (21-32); COR CA(FOR HYPOALB) 8.8 mg/dL (8.5-10.1); CREATININE 1.27 mg/dL (0.55-1.02); TOTAL PROTEIN 7.6 g/dL (6.4-8.2)
--- NOTE | 2017-07-12 13:52 | RAD ---
HISTORY: Fall last night Study: Three views of the lumbar spine Comparison: None Findings: Images demonstrate an anterior compression deformity of the T11 vertebral body which demonstrates scl erotic changes suggesting a remote process. Recommend clinical correlation and assessment for focal p oint tenderness for further evaluation. Correlation with MRI may be helpful as clinically indicated. Otherwise the lumbar vertebral body heights are relatively maintained. Degenerate facet changes are s een throughout the lumbar spine. Minimal grade 1 anterolisthesis of L4 on L5 is noted. Multilevel int ervertebral disc space narrowing is noted and is most pronounced at L5/S1. Mild multilevel osteophyto sis is also demonstrated. Atherosclerotic changes are seen within the visualized aorta. IMPRESSION: Mild anterior compression deformity of the T11 vertebral body which may be chronic in nature as discu ssed above. Multilevel degenerative changes as noted above. Reported By:
== END 2017-07-12 14:40 | disposition home or self-care (01) ==
LOC: ER 12:59
DX: N39.0 Urinary tract infection, site not specified (principal); R50.9 Fever, unspecified; G31.9 Degenerative disease of nervous system, unspecified; W19.XXXA Unspecified fall, initial encounter; Y92.009 Unspecified place in unspecified non-institutional (private) residence as the place of occurrence of the external cause
CPT/HCPCS: 36415; 70450; 72100; 73560; 80053; 81003; 99283

== ENCOUNTER 2017-07-12 22:34 | Emergency (ER) | payer OTHER ==
[2017-07-12 22:35] VITALS: BP 147/68
== END 2017-07-12 22:56 | disposition left against medical advice (07) ==
LOC: ER 22:34
DX: R50.9 Fever, unspecified (principal)

== ENCOUNTER 2017-12-18 02:57 | Observation (INO) ==
[2017-12-18 03:13] VITALS: BMI 29.2
[2017-12-18] MEDS ORDERED: NS 1000 ML 1,000 ML ONE ×2 (03:14→10:02)
[2017-12-18] MEDS ORDERED: TYLENOL 325 MG TAB PO ONE ×2 (03:15)
[2017-12-18 03:59] LABS: BASOPHILS # (AUTO) 0.1 X10^3/uL (0.0-0.1); BASOPHILS % (AUTO) 0.6 % (0.2-1.0); EOSINOPHILS # (AUTO) 0.1 x10^3/uL (0.0-0.2); EOSINOPHILS % (AUTO) 0.4 % (0.9-2.9); HEMATOCRIT 35.5 % (36.0-47.0); HEMOGLOBIN 11.8 g/dL (12.0-16.0); LYMPHOCYTES # (AUTO) 1.6 X10^3/uL (1.3-2.9); LYMPHOCYTES % (AUTO) 9.3 % (21.0-51.0); MEAN CORPUSCULAR HEMOGLOBIN 26.5 pg (27.0-34.0); MEAN CORPUSCULAR HGB CONC 33.2 g/dL (33.0-35.0); MEAN CORPUSCULAR VOLUME 79.9 fL (80.0-100.0); MEAN PLATELET VOLUME 8.6 fL (7.4-11.0); MONOCYTES # (AUTO) 0.9 x10^3/uL (0.3-0.8); MONOCYTES % (AUTO) 5.4 % (0.0-13.0); NEUTROPHILS % (AUTO) 84.3 % (42.0-75.0); PLATELET COUNT 340 X10^3/uL (150.0-450.0); RED BLOOD COUNT 4.45 X10^6/uL (3.5-5.4); RED CELL DISTRIBUTION WIDTH 15.2 % (11.6-16.5); WHITE BLOOD COUNT 16.6 X10^3/uL (3.6-10.0)
[2017-12-18 04:01] LABS: BILIRUBIN,URINE NEGATIVE (NEGATIVE); BLOOD/HEMOGLOBIN,URINE NEGATIVE (NEGATIVE); GLUCOSE, URINE 1+ (NEGATIVE); KETONES,URINE NEGATIVE (NEGATIVE); LEUKOCYTE ESTERASE ,URINE 1+ (NEGATIVE); NITRITES,URINE NEGATIVE (NEGATIVE); PROTEIN,URINE 2+ (NEGATIVE); UROBILINOGEN,URINE NORMAL (NORMAL)
[2017-12-18 04:06] LABS: ALANINE AMINOTRANSFERASE 16 Units/L (12-78); ALBUMIN 4.1 g/dL (3.4-5.0); ALKALINE PHOSPHATASE 61 Units/L (46-116); AMYLASE 27 Units/L (25-115); ASPARTATE AMINO TRANSFERASE 16 Units/L (15-37); BLOOD UREA NITROGEN 9 mg/dL (7-18); CALCIUM 8.8 mg/dL (8.5-10.1); CARBON DIOXIDE 24.4 mmol/L (21-32); CHLORIDE 100 mmol/L (98-107); COR NA(FOR HYPERGLY) 139 mmol/L (136-145); CREATININE 1.15 mg/dL (0.55-1.02); LIPASE 133 Units/L (73-393); MAGNESIUM 1.1 mg/dL (1.7-2.9); PHOSPHORUS 1.7 mg/dL (2.6-4.7); SODIUM 137 mmol/L (136-145); TOTAL PROTEIN 8.5 g/dL (6.4-8.2); eGFR NON BLACK RACES 49 (>60)
[2017-12-18 04:21] LABS: CKMB % 1.3 % (<4); CREATINE KINASE 88 Units/L (26-192); CREATINE KINASE MB 1.1 ng/mL (0-4.0); TROPONIN I < 0.02 ng/mL (0-1.5)
[2017-12-18 04:22] LABS: APPEARANCE,URINE CLEAR (CLEAR); COLOR,URINE YELLOW (YELLOW); RBC,URINE NONE SEEN /HPF (NONE SEEN)
[2017-12-18 04:23] LABS: BACTERIA,URINE NEGATIVE /HPF (NEGATIVE); SQUAMOUS EPITHELIAL CELL,UR RARE /HPF (NEGATIVE)
[2017-12-18 04:30] LABS: LACTIC ACID 2.6 mmol/L (0.4-2.0)
--- NOTE | 2017-12-18 04:41 | RAD ---
Chest AP portable Indication: Altered mental status Comparison: 09/23/2016 Findings: There is no pneumothorax or effusion. There is no consolidation. Heart size is prominent. H iatal hernia suspected. Chin obscures the upper chest Impression: Cardiomegaly and COPD, without new acute chest process. Hiatal hernia noted. Study is desai ited. Reported By:
--- NOTE | 2017-12-18 04:46 | CT ---
CT head without contrast Indication: Altered mental status Comparison: 07/12/2017 Technique: Axial images from the skullbase to the vertex without contrast. Coronal and sagittal refor mats provided. Findings: There is no acute intracranial hemorrhage, mass or mass effect. No extra-axial fluid collec tion or abnormal area of hypoattenuation suggest infarction seen. Ventricles and sulci are normal. Isac ne windows shows no osseous lesion. Paranasal sinuses and mastoid air cells are clear. There is mild atrophy with ex vacuo ventricular and sulcal enlargement. Periventricular white matter change suggest microangiopathy. Impression: 1. No acute intracranial hemorrhage 2. Atrophy and microangiopathy, similar to the prior Reported By:
[2017-12-18] MEDS ORDERED: TORADOL 30 MG VIAL IVP ONE (05:21)
[2017-12-18] MEDS ORDERED: ROCEPHIN VIAL 1 GRAM IVP ONE (05:24)
[2017-12-18] MEDS ORDERED: TORADOL 15 MG VIAL ONE (05:25)
[2017-12-18] MEDS ORDERED: ROCEPHIN VIAL 1 GRAM ONE (05:25)
--- NOTE | 2017-12-18 06:04 | DR.AMS ---
HPI Time Seen Time Seen by Provider: 12/18/17 03:33 PCP Primary Care Physician: NANDO HPI Comment HPI Comment: SON SAID PATIENT WAS IN HER NORMAL STATE OF HEALTH THIS AM AND TONIGHT SHE AMS. PATIENT HAVE HIGH FEVER. DENIES DYSURIA, COUGH OR SOB. Complaint Cheif Complaint Doctors Comments: AMS NOTED SUDDENLY TONIGHT AND ELEVATED TEMP. Chief Complaint:: PT STATES" I WOKE UP AND WAS CONFUSED I COULDN'T THINK OF MY OWN NAME" PT IS RUNNING A HIGH TEMP Reviewed Nurses Notes Reviewed: Yes Source History Provided: Patient and Family Member (SON.) Mode of Arrival Mode of Arrival: Ambulatory Timing Onset of Chief Complaint: 12/18/17 Came On: Suddenly Symptoms: Unchanged Symptom Onset: Unknown Duration Duration: Constant Duration: Hours Quality Quality: Change in Behavior and Confusion Severity Severity: Moderate Context Recent: Fever History Of: Dementia Associated Signs and Symptoms Associated Signs and Symptoms: Confusion and Change in Memory PMH PMH Past Medical History: Yes Past Medical History: CVA, Dementia, Diabetes, Dyslipidemia, GERD and Hypertension Past Surgical History: Yes Surgical History: Unknown Family History History of Family Medical Conditions: Yes Family Medical History: Diabetes Mellitus and Hypertension Social History Do you use any recreational Drugs:: No infectious screening In the last 2 months have you had wt loss of >10#?: NO Have you had fever, night sweats or hemotysis?: No Have you traveled outside the country in the last 6 months?: No Isolation: Standard ROS Review of Systems Constitutional: No Symptoms Reported, Fever, Weakness and Fatigue Eyes: No Symptoms Reported ENTM: No Symptoms Reported Respiratoy: No Symptoms Reported and Non-Productive Cough Cardiovascular: No Symptoms Reported Gastrointestinal/Abdominal: No Symptoms Reported Genitourinary: No Symptoms Reported Neurological: No Symptoms Reported and Weakness Musculoskeletal: No Symptoms Reported, Back Pain and Muscle Pain Integumentary: No Symptoms Reported Hematologic/Lymphatic: Easy Bleeding and Easy Bruising Endocrine: No Symptoms Reported Psychiatric: No Symptoms Reported All Other Systems: Reviewed and Negative Unable to Obtain Due To: Altered mental status PE Vitals Vital Signs: Temp Pulse Pulse Resp BP BP BP 12/19/17 04:00 98.1 F 64 20 143/65 12/19/17 00:00 98.2 F 69 20 151/70 12/18/17 20:00 100.4 F H 86 20 159/72 12/18/17 16:00 99.2 F 90 20 137/82 12/18/17 12:00 97.9 F 97 H 20 159/58 12/18/17 07:00 98.9 F 83 20 128/60 12/18/17 04:49 101.7 F H 104 H 18 156/72 12/18/17 03:10 104.7 F H 119 H 22 201/90 07/12/17 12:45 147/68 09/24/16 12:00 130/57 09/24/16 04:00 115/55 Pulse Ox 12/19/17 04:00 99 12/19/17 00:00 95 12/18/17 20:00 94 L 12/18/17 16:00 98 12/18/17 12:00 95 12/18/17 07:00 95 12/18/17 04:49 99 12/18/17 03:10 97 07/12/17 12:45 09/24/16 12:00 09/24/16 04:00 General Limitations: Altered Mental Status General Appearance: Alert and In No Apparent Distress Head Head Exam: Normal Inspection, Atraumatic and Normocephalic Head Exam Physical: Other (NONE REPORTED.) Eyes Eye exam: Normal Appearance, PERRL and EOMI Pupils: Regular, Round: Bilateral and Reactive: Bilateral ENT ENT Exam: Normal Exam, Normal Oropharynx, Normal External Ear Exam and TM's Normal Bilaterally External Ear Exam: Normal External Inspection TM/Canal Exam: Bilateral: Normal Nose Exam: Normal Nose Exam Mouth Exam: Normal Inspection Throat Exam: Normal Inspection Neck Neck Exam: Normal Inspection and Trachea Midline Chest Chest Inspection: Normal Inspection and Symmetric Chest Wall Rise Respiratory Respiratory Exam: Normal Lung Sounds Bilat Respiratory Exam: Bilateral: Rhonchi and Lower: Rhonchi Cardiovascular Cardiovascular Exam: Regular Rate and Normal Rhythm Abdominal Exam Abdominal Exam: Normal Inspection, Normal Bowel Sounds and Soft; negative Tenderness Extremities Extremities Exam: Edema (TRACE EDEMA.) Back Back Exam: Normal Inspection Neurological Neurological Exam: Alert and CN II-XII Intact; negative Motor Sensory Deficit Patient Oriented To: Person and Place Speech: Fluid Speech Cranial Nerve Exam: EOM Function (II, III, IV, ): Normal, Facial Sensation (V) : Normal, Facial Palsy (VII): Normal, Gag reflex (XI): Normal and Spinal Accessory Function (XI): Normal Motor Strength - LUE: 5/5 Motor Strength - RUE: 5/5 Motor Strength - LLE: 5/5 Motor Strength - RLE: 5/5 Upper Motor Neuron Exam: Babinski Sign: Normal Psychological Psychiatric Exam: Normal Affect and Normal Mood Skin Skin Exam: Dry COURSE Treatment Treatment: SEE ORDERS. Consultation Consultation Comments: DISCUSS PATIENT WITH DR. LIMON. HE WILL ADMIT PATIENT. Education/Counseling Education/Counseling: Patient and Family Educated On: Diagnosis ROR Labs Reviewed Laboratory Results Reviewed?: Yes Result Diagrams: 12/19/17 04:50 12/19/17 04:50 Laboratory: WBC 8.9 X10^3/uL (3.6-10.0) 12/19/17 04:50 RBC 3.78 X10^6/uL (3.5-5.4) 12/19/17 04:50 Hgb 10.1 g/dL (12.0-16.0) L 12/19/17 04:50 Hct 30.2 % (36.0-47.0) L 12/19/17 04:50 MCV 79.8 fL (80.0-100.0) L 12/19/17 04:50 MCH 26.8 pg (27.0-34.0) L 12/19/17 04:50 MCHC 33.6 g/dL (33.0-35.0) 12/19/17 04:50 RDW 15.3 % (11.6-16.5) 12/19/17 04:50 Plt Count 208 X10^3/uL (150.0-450.0) 12/19/17 04:50 MPV 9.0 fL (7.4-11.0) 12/19/17 04:50 Neut % (Auto) 70.8 % (42.0-75.0) 12/19/17 04:50 Lymph % (Auto) 21.1 % (21.0-51.0) 12/19/17 04:50 [place] % (Auto) 7.0 % (0.0-13.0) 12/19/17 04:50 Eos % (Auto) 0.1 % (0.9-2.9) L 12/19/17 04:50 Baso % (Auto) 1.0 % (0.2-1.0) 12/19/17 04:50 Neut # (Auto) 6.3 x10^3/uL (2.2-4.8) H 12/19/17 04:50 Lymph # (Auto) 1.9 X10^3/uL (1.3-2.9) 12/19/17 04:50 [place] # (Auto) 0.6 x10^3/uL (0.3-0.8) 12/19/17 04:50 Eos # (Auto) 0.0 x10^3/uL (0.0-0.2) 12/19/17 04:50 Baso # (Auto) 0.1 X10^3/uL (0.0-0.1) 12/19/17 04:50 Absolute Nucleated RBC 0.0 /100WBC 12/19/17 04:50 INR Target Range - 12/18/17 03:25 INR 0.95 (0.8-1.3) 12/18/17 03:25 APTT 26.6 SECONDS (22.9-36.5) 12/18/17 03:25 PTT Comment - 12/18/17 03:25 Sodium 139 mmol/L (136-145) 12/19/17 04:50 Corrected Sodium 140 mmol/L (136-145) 12/19/17 04:50 Potassium 3.6 mmol/L (3.5-5.1) 12/19/17 04:50 Chloride 104 mmol/L (98-107) 12/19/17 04:50 Carbon Dioxide 26.1 mmol/L (21-32) 12/19/17 04:50 BUN 12 mg/dL (7-18) 12/19/17 04:50 Creatinine 1.11 mg/dL (0.55-1.02) H 12/19/17 04:50 Est GFR (MDRD) Af Amer > 60 (>60) 12/19/17 04:50 Est GFR (MDRD) Non-Af 51 (>60) L 12/19/17 04:50 Glucose 138 mg/dL (65-99) H 12/19/17 04:50 POC Glucose (mg/dL) 155 mg/dL (65-99) H 12/19/17 06:15 Lactic Acid 1.2 mmol/L (0.4-2.0) 12/18/17 22:00 Calcium 7.9 mg/dL (8.5-10.1) L 12/19/17 04:50 Corrected Calcium 8.8 mg/dL (8.5-10.1) 12/19/17 04:50 Phosphorus 1.7 mg/dL (2.6-4.7) L 12/18/17 03:25 Magnesium 2.7 mg/dL (1.7-2.9) 12/19/17 04:50 Total Bilirubin 0.30 mg/dL (0.2-1.0) 12/19/17 04:50 AST 18 Units/L (15-37) 12/19/17 04:50 ALT 13 Units/L (12-78) 12/19/17 04:50 Alkaline Phosphatase 49 Units/L (46-116) 12/19/17 04:50 Creatine Kinase 79 Units/L (26-192) 12/18/17 16:01 CK-MB (CK-2) 1.1 ng/mL (0-4.0) 12/18/17 16:01 CK/CKMB % Calc 1.4 % (<4) 12/18/17 16:01 Troponin I < 0.02 ng/mL (0-1.5) 12/18/17 16:01 Total Protein 6.8 g/dL (6.4-8.2) 12/19/17 04:50 Albumin 2.9 g/dL (3.4-5.0) L 12/19/17 04:50 Globulin 3.9 g/dL (2.5-4.5) 12/19/17 04:50 Albumin/Globulin Ratio 0.7 Ratio (1.1-2.1) L 12/19/17 04:50 Amylase 27 Units/L (25-115) 12/18/17 03:25 Lipase 133 Units/L (73-393) 12/18/17 03:25 Specimen Type Catherized urine 12/18/17 03:29 Urine Color Yellow (YELLOW) 12/18/17 03:29 Urine Appearance Clear (CLEAR) 12/18/17 03:29 Urine pH 7.0 (5.0 - 8.0) 12/18/17 03:29 Ur Specific [place] 1.005 (1.000-1.030) 12/18/17 03:29 Urine Protein 2+ (NEGATIVE) 12/18/17 03:29 Urine Glucose (UA) 1+ (NEGATIVE) 12/18/17 03:29 Urine Ketones Negative (NEGATIVE) 12/18/17 03:29 Urine Occult Blood Negative (NEGATIVE) 12/18/17 03:29 Urine Nitrite Negative (NEGATIVE) 12/18/17 03:29 Urine Bilirubin Negative (NEGATIVE) 12/18/17 03:29 Urine Urobilinogen Normal (NORMAL) 12/18/17 03:29 Ur Leukocyte Esterase 1+ (NEGATIVE) 12/18/17 03:29 Urine RBC None seen /HPF (NONE SEEN) 12/18/17 03:29 Urine WBC 0-2 /HPF (NONE SEEN) 12/18/17 03:29 Ur Squamous Epith Cells Rare /HPF (NEGATIVE) 12/18/17 03:29 Urine Bacteria Negative /HPF (NEGATIVE) 12/18/17 03:29 Ur Culture Indicated? No/not indicated 12/18/17 03:29 Influenza Type A (PCR) Negative (NEGATIVE) 12/18/17 22:44 Influenza Type B (PCR) Negative (NEGATIVE) 12/18/17 22:44 XRAY XRAY Interpreted by: Radiologist XRAY Findings: REPORT DISCUSS WITH PATIENT AND HER SON. EKG [place]: Normal Rhythm: NSR Diagnosis Discharge Problem: Leukocytosis, Fever, Altered mental status
[2017-12-18] MEDS: LEVAQUIN PREMIX IV 750 MG 750 MG/150 ML BAG IV SCH (10:08)
[2017-12-18] MEDS: NS 1000 ML 1,000 ML IV SCH (10:08)
[2017-12-18 10:35] LABS: LACTIC ACID 1.9 mmol/L (0.4-2.0)
[2017-12-18 10:40] LABS: CKMB % 1.5 % (<4); CREATINE KINASE 82 Units/L (26-192); CREATINE KINASE MB 1.2 ng/mL (0-4.0); TROPONIN I < 0.02 ng/mL (0-1.5)
[2017-12-18] MEDS: MAGNESIUM SULFATE 1 GRAM/100 mL PREMIX 1 GM/100 ML BAG IV PRN ×5 (11:55→23:00)
[2017-12-18] MEDS ORDERED: TYLENOL 325 MG TAB PO PRN (13:26)
[2017-12-18] MEDS ORDERED: CATAPRES-TTS-3 TD SCH (14:00)
[2017-12-18 16:36] LABS: CKMB % 1.4 % (<4); CREATINE KINASE 79 Units/L (26-192); CREATINE KINASE MB 1.1 ng/mL (0-4.0); TROPONIN I < 0.02 ng/mL (0-1.5)
[2017-12-18] MEDS: PriLOSEC PO SCH (16:43)
[2017-12-18] MEDS: NORVASC TAB 10 MG PO SCH (16:43)
[2017-12-18] MEDS ORDERED: GLUCOPHAGE ONE (20:32)
[2017-12-18] MEDS ORDERED: GLIPIZIDE 5 MG PO SCH (21:00)
[2017-12-18] MEDS: GLUCOPHAGE PO SCH (21:15)
[2017-12-18] MEDS: COZAAR PO SCH (21:15)
[2017-12-18] MEDS: GLUCOTROL PO SCH (21:16)
[2017-12-19] MEDS: MAGNESIUM SULFATE 1 GRAM/100 mL PREMIX 1 GM/100 ML BAG IV PRN (01:05)
[2017-12-19] MEDS: NS 1000 ML 1,000 ML IV SCH ×2 (02:43→14:35)
[2017-12-19 06:25] LABS: BASOPHILS # (AUTO) 0.1 X10^3/uL (0.0-0.1); EOSINOPHILS % (AUTO) 0.1 % (0.9-2.9); HEMATOCRIT 30.2 % (36.0-47.0); HEMOGLOBIN 10.1 g/dL (12.0-16.0); LYMPHOCYTES # (AUTO) 1.9 X10^3/uL (1.3-2.9); LYMPHOCYTES % (AUTO) 21.1 % (21.0-51.0); MEAN CORPUSCULAR HEMOGLOBIN 26.8 pg (27.0-34.0); MEAN CORPUSCULAR HGB CONC 33.6 g/dL (33.0-35.0); MEAN CORPUSCULAR VOLUME 79.8 fL (80.0-100.0); MONOCYTES # (AUTO) 0.6 x10^3/uL (0.3-0.8); NEUTROPHILS # (AUTO) 6.3 x10^3/uL (2.2-4.8); NEUTROPHILS % (AUTO) 70.8 % (42.0-75.0); PLATELET COUNT 208 X10^3/uL (150.0-450.0); RED BLOOD COUNT 3.78 X10^6/uL (3.5-5.4); RED CELL DISTRIBUTION WIDTH 15.3 % (11.6-16.5); WHITE BLOOD COUNT 8.9 X10^3/uL (3.6-10.0)
[2017-12-19 06:48] LABS: ALANINE AMINOTRANSFERASE 13 Units/L (12-78); ALBUMIN 2.9 g/dL (3.4-5.0); ALKALINE PHOSPHATASE 49 Units/L (46-116); ASPARTATE AMINO TRANSFERASE 18 Units/L (15-37); BLOOD UREA NITROGEN 12 mg/dL (7-18); CALCIUM 7.9 mg/dL (8.5-10.1); CARBON DIOXIDE 26.1 mmol/L (21-32); CHLORIDE 104 mmol/L (98-107); COR CA(FOR HYPOALB) 8.8 mg/dL (8.5-10.1); COR NA(FOR HYPERGLY) 140 mmol/L (136-145); CREATININE 1.11 mg/dL (0.55-1.02); MAGNESIUM 2.7 mg/dL (1.7-2.9); SODIUM 139 mmol/L (136-145); TOTAL PROTEIN 6.8 g/dL (6.4-8.2); eGFR NON BLACK RACES 51 (>60)
--- NOTE | 2017-12-19 08:28 | DR.H&P ---
H&P - History & Physical for Day of: H&P Date: 12/18/17 - Chief Complaint Chief Complaint: DISORIENTATION, FEVER, WEAKNESS - History of Present Illness History of Present Illness: IS A 72 YEAR OLD PATIENT OF OURS WHO PRESENTED TO THE EMERGENCY ROOM WITH COMPLAINTS OF DISORIENTATION, CONFUSION, FEVER, AND WEAKNESS. PATIENTS SON STATED THAT SHE WAS IN HER NORMAL STATE OF HEALTH EARLIER IN THE DAY. PATIENT REPORTS DIARRHEA YESTERDAY, BUT NONE SINCE. ON ARRIVAL, VITALS WERE 104.7, 119-22-97%-201/90. LABS WERE OBTAINED. ABNORMAL LAB VALUES INCLUDE THE FOLLOWING: WBC 16.6, HGB 11.8, HCT 35.5, CREATININE 1.15 , GLUCOSE 179, PHOSPHORUS 1.7, MAGNESIUM 1.1, TOTAL PROTEIN 8.5, LACTIC ACID 2.6. CARDIAC ENZYMES WITHIN NORMAL LIMITS. URINALYSIS REVEALED WBC 0-2, RBC NONE , LEUKOCYTES 1+, BACTERIA NEGATIVE, INFLUENZA NEGATIVE. CHEST XRAY REVEALED: Cardiomegaly and COPD, without new acute chest process. Hiatal hernia noted. Study is limited. BRAIN CT OBTAINED AND REVEALED: There is no acute intracranial hemorrhage, mass or mass effect. No extra-axial fluid collection or abnormal area of hypoattenuation suggest infarction seen. Ventricles and sulci are normal. Bone windows shows no osseous lesion. Paranasal sinuses and mastoid air cells are clear. There is mild atrophy with ex vacuo ventricular and sulcal enlargement. Periventricular white matter change suggest microangiopathy. EKG REVEALED: SINUS TACHYCARDIA WITH HR 103. SHE WAS ADMITTED TO THE HOSPITAL FOR FURTHER EVALUATION AND TREATMENT OF AMS, FEVER, AND LEUKOCYTOSIS. SHE WAS GIVEN ROCEPHIN 1GM IV X 1 DOSE, TORADOL 15MG IV X 1 DOSE, AND TYLENOL 650MG PO X 1 DOSE IN THE ER. SHE WAS STARTED ON NORMAL SALINE AT 75ML/HR AND LEVAQUIN 750MG IV DAILY. HOME MEDICATIONS RESUMED. WE PLANNED TO FOLLOW UP WITH AM LABS AND CONTINUE TO MONITOR PATIENT. - Past Medical History Past Medical History: Hypertension, Dyslipidemia, Diabetes, Dementia, CVA, GERD Additional Medical History: Bronchitis, Urinary Tract Infections, Muscle Weakness - Past Surgical History Surgical History: Unknown - Family History Family Medical History: Diabetes Mellitus, Hypertension - Social History Alcohol Use: None Drug Use: None - Medications Home Medications: No Known Drug Allergies Allergy (Verified 09/24/16 14:01) CONTINUE taking the following medications clonidine 0.3 mg TRANSDERMAL WEEKLY 12/18/17 [History] - Review of Systems Constitutional: Fever, Weakness Eyes: No Symptoms Reported ENT: No Symptoms Reported Respiratory: No Symptoms Reported Cardiovascular: No Symptoms Reported Gastrointestinal: No Symptoms Reported Genitourinary: No Symptoms Reported Musculoskeletal: No Symptoms Reported Skin: No Symptoms Reported Neurological: Weakness - Physical Exam Vital Signs: Temperature 98.1 F Pulse Rate [Left Brachial] 64 Pulse Rate 119 Respiratory Rate 20 Blood Pressure [Left Arm] 151/70 Blood Pressure [Right Arm] 143/65 Blood Pressure 201/90 O2 Sat by Pulse Oximetry 99 Oriented: Person Eyes: Normal Ear: Normal Nose: Normal Throat: Normal Respiratory: Diminished Throughout Cardiovascular: Tachycardia. negative: S3, S4, Murmur : Normal Auscultation: Bowel Sounds: Normal Palpation: Normal Tenderness: Normal Skin: Normal Musculoskeletal: Normal Psychiatric: Normal, Other Mood Description: Calm Affect: Normal Speech Pattern: Clear - Assessment/Plan (1) Leukocytosis Qualifiers: Leukocytosis type: unspecified Qualified Code(s): D72.829 - Elevated white blood cell count, unspecified Status: Acute Plan: ADMIT, LEVAQUIN 750MG IV DAILY, NORMAL SALINE AT 75ML/HR, MONITOR LABS AND VITALS (2) Mental status alteration Qualifiers: Altered mental status type: transient alteration of awareness Qualified Code(s): R40.4 - Transient alteration of awareness Status: Acute (3) Generalized weakness Status: Acute (4) Fever Qualifiers: Fever type: unspecified Qualified Code(s): R50.9 - Fever, unspecified Status: Acute Plan: TYLENOL 650MG PO Q4H PRN FEVER, LEVAQUIN 750MG IV DAILY, CONTINUE TO MONITOR - Allergies Allergies/Adverse Reactions: Allergies Allergy/AdvReac Type Severity Reaction Status Date / Time No Known Drug Allergies Allergy Verified 09/24/16 14:01
[2017-12-19] MEDS ORDERED: GLUCOPHAGE ONE ×2 (09:56→20:10)
[2017-12-19] MEDS: ECOTRIN TAB 325 MG PO SCH (09:58)
[2017-12-19] MEDS: GLUCOPHAGE PO SCH ×2 (09:58→21:15)
[2017-12-19] MEDS: GLUCOTROL PO SCH ×2 (09:58→21:18)
[2017-12-19] MEDS: NORVASC TAB 10 MG PO SCH (09:59)
[2017-12-19] MEDS: LEVAQUIN PREMIX IV 750 MG 750 MG/150 ML BAG IV SCH (09:59)
[2017-12-19] MEDS: PriLOSEC PO SCH (09:59)
--- NOTE | 2017-12-19 15:50 | MRI ---
MRI Brain without contrast HISTORY: Altered mental status and weakness Comparison:CT performed on previous day Technique: Multiplanar multi-sequence MRI of the brain was obtained utilizing standard departmental p rotocol. Sagittal and axial T1 weighted images were obtained. Axial T2 and flair weighted images we re performed as well. Axial diffusion weighted and ADC trace mapping was performed. Findings: There is moderate generalized cerebral atrophy with fairly severe periventricular and deep white hansel er FLAIR and T2 signal hyperintensity most consistent with sequela of chronic microvascular ischemic disease. The midline structures appear unremarkable. The evaluation of the brain parenchyma demonstrates no a bnormal signal characteristics to suggest intraparenchymal mass or hemorrhage. No extra-axial fluid collections are observed. The ventricular system appears symmetric and nondilated. The CP angle is normal in its appearance without brainstem mass or evidence for acoustic neuroma. The flow voids on both T1 and T2 weighted imaging appear unremarkable. Evaluation of the diffusion weighted imaging d oes not demonstrate abnormal signal characteristics to suggest acute ischemic change. The extracrani al structures are unremarkable. IMPRESSION: 1. No acute intracranial abnormality. 2. Moderate generalized cerebral atrophy with bilateral periventricular and deep white matter FLAIR a nd T2 signal hyperintensity is most consistent with sequela of chronic microvascular ischemic disease . Reported By:
--- NOTE | 2017-12-19 16:25 | MRI ---
HISTORY: Weakness with altered mental status Study: MRA brain without contrast Comparison: None Technique: 3-D [id number] imaging of the intracranial circulation was performed. Findings: Patient motion reduces diagnostic accuracy. The anterior circulation demonstrates normal anatomic fin dings. There is some mild narrowing of the ICAs bilaterally which is not appear to be flow limiting. The GM CEAs anyone segments appear widely patent.. No aneurysmal changes or evidence for vascular m alformation can be identified. The posterior circulation demonstrates a posterior communicating ana ry on the right and left. The vertebrobasilar system is normal in its appearance. IMPRESSION: 1. Mild atherosclerotic changes of the ICAs with no significant stenosis identified. No evidence for aneurysm dilatation or dissection seen.. Reported By:
--- NOTE | 2017-12-19 18:18 | PCM.PROG ---
Progress Note - Progress Note for Day of Date of Exam: 12/19/17 - Subjective Subjective: WAS ADMITTED FOR AMS, LEUKOCYTOSIS, GENERALIZED WEAKNESS, AND FEVER. TODAY, SHE IS SITTING UP IN THE CHAIR WITH EYES CLOSED ON MORNING ROUNDS. SHE AWAKENS AND RESPONDS TO VERBAL STIMULI, BUT CONTINUES WITH CONFUSION AND WEAKNESS. SHE HAS BEEN AFEBRILE THROUGHOUT THE NIGHT. HER VITALS TODAY ARE 98.1-67-20-97%-143/65. LABS WERE OBTAINED. ABNORMAL LAB VALUES INCLUDE THE FOLLOWING: HGB 10.1, HCT 30.2, CREATININE 1.11, GLUCOSE 138, CALCIUM 7.9, ALBUMIN 2.9. SHE CONTINUES TO RECEIVE IV ANTIBIOTICS AND NORMAL SALINE AT 75ML/HR. TODAY, WE WILL OBTAIN A BRAIN MRI/MRA WITHOUT CONTRAST. OTHERWISE, WE PLAN TO FOLLOW UP WITH AM LABS AND CONTINUE TO MONITOR PATIENT. - Past Medical Family Social History Past Med/Fam/Surg Hx: No changes since H&P Allergies: Allergies No Known Drug Allergies Allergy (Verified 09/24/16 14:01) - Review of Systems ROS: No change since H&P - Vital Signs and I&O's Vital Signs: Temperature 98.5 F Pulse Rate [Left Brachial] 110 Pulse Rate 119 Respiratory Rate 20 Blood Pressure [Left Arm] 173/78 Blood Pressure [Right Arm] 143/65 Blood Pressure 201/90 O2 Sat by Pulse Oximetry 98 Intake and Output: Intake & Output 12/17/17 12/18/17 12/19/17 12/20/17 11:59 11:59 11:59 11:59 Intake Total 610 / 610 240 / 240 Balance 610 / 610 240 / 240 - Physical Exam Oriented: Person Eyes: Normal Ear: Normal Nose: Normal Throat: Normal Cardiovascular: Tachycardia. negative: S3, S4, Murmur : Normal Auscultation: Bowel Sounds: Normal Palpation: Normal Tenderness: Normal Skin: Normal Musculoskeletal: Normal Psychiatric: Normal, Other Mood Description: Calm Affect: Normal Speech Pattern: Clear - Laboratory and Diagnostics Result Diagrams: 12/19/17 04:50 12/19/17 04:50 Labs: Laboratory WBC 8.9 X10^3/uL (3.6-10.0) 12/19/17 04:50 RBC 3.78 X10^6/uL (3.5-5.4) 12/19/17 04:50 Hgb 10.1 g/dL (12.0-16.0) L 12/19/17 04:50 Hct 30.2 % (36.0-47.0) L 12/19/17 04:50 MCV 79.8 fL (80.0-100.0) L 12/19/17 04:50 MCH 26.8 pg (27.0-34.0) L 12/19/17 04:50 MCHC 33.6 g/dL (33.0-35.0) 12/19/17 04:50 RDW 15.3 % (11.6-16.5) 12/19/17 04:50 Plt Count 208 X10^3/uL (150.0-450.0) 12/19/17 04:50 MPV 9.0 fL (7.4-11.0) 12/19/17 04:50 Neut % (Auto) 70.8 % (42.0-75.0) 12/19/17 04:50 Lymph % (Auto) 21.1 % (21.0-51.0) 12/19/17 04:50 [place] % (Auto) 7.0 % (0.0-13.0) 12/19/17 04:50 Eos % (Auto) 0.1 % (0.9-2.9) L 12/19/17 04:50 Baso % (Auto) 1.0 % (0.2-1.0) 12/19/17 04:50 Neut # (Auto) 6.3 x10^3/uL (2.2-4.8) H 12/19/17 04:50 Lymph # (Auto) 1.9 X10^3/uL (1.3-2.9) 12/19/17 04:50 [place] # (Auto) 0.6 x10^3/uL (0.3-0.8) 12/19/17 04:50 Eos # (Auto) 0.0 x10^3/uL (0.0-0.2) 12/19/17 04:50 Baso # (Auto) 0.1 X10^3/uL (0.0-0.1) 12/19/17 04:50 Absolute Nucleated RBC 0.0 /100WBC 12/19/17 04:50 INR Target Range - 12/18/17 03:25 INR 0.95 (0.8-1.3) 12/18/17 03:25 APTT 26.6 SECONDS (22.9-36.5) 12/18/17 03:25 PTT Comment - 12/18/17 03:25 Sodium 139 mmol/L (136-145) 12/19/17 04:50 Corrected Sodium 140 mmol/L (136-145) 12/19/17 04:50 Potassium 3.6 mmol/L (3.5-5.1) 12/19/17 04:50 Chloride 104 mmol/L (98-107) 12/19/17 04:50 Carbon Dioxide 26.1 mmol/L (21-32) 12/19/17 04:50 BUN 12 mg/dL (7-18) 12/19/17 04:50 Creatinine 1.11 mg/dL (0.55-1.02) H 12/19/17 04:50 Est GFR (MDRD) Af Amer > 60 (>60) 12/19/17 04:50 Est GFR (MDRD) Non-Af 51 (>60) L 12/19/17 04:50 Glucose 138 mg/dL (65-99) H 12/19/17 04:50 POC Glucose (mg/dL) 200 mg/dL (65-99) H 12/19/17 16:10 Lactic Acid 1.2 mmol/L (0.4-2.0) 12/18/17 22:00 Calcium 7.9 mg/dL (8.5-10.1) L 12/19/17 04:50 Corrected Calcium 8.8 mg/dL (8.5-10.1) 12/19/17 04:50 Phosphorus 1.7 mg/dL (2.6-4.7) L 12/18/17 03:25 Magnesium 2.7 mg/dL (1.7-2.9) 12/19/17 04:50 Total Bilirubin 0.30 mg/dL (0.2-1.0) 12/19/17 04:50 AST 18 Units/L (15-37) 12/19/17 04:50 ALT 13 Units/L (12-78) 12/19/17 04:50 Alkaline Phosphatase 49 Units/L (46-116) 12/19/17 04:50 Creatine Kinase 79 Units/L (26-192) 12/18/17 16:01 CK-MB (CK-2) 1.1 ng/mL (0-4.0) 12/18/17 16:01 CK/CKMB % Calc 1.4 % (<4) 12/18/17 16:01 Troponin I < 0.02 ng/mL (0-1.5) 12/18/17 16:01 Total Protein 6.8 g/dL (6.4-8.2) 12/19/17 04:50 Albumin 2.9 g/dL (3.4-5.0) L 12/19/17 04:50 Globulin 3.9 g/dL (2.5-4.5) 12/19/17 04:50 Albumin/Globulin Ratio 0.7 Ratio (1.1-2.1) L 12/19/17 04:50 Amylase 27 Units/L (25-115) 12/18/17 03:25 Lipase 133 Units/L (73-393) 12/18/17 03:25 Specimen Type Catherized urine 12/18/17 03:29 Urine Color Yellow (YELLOW) 12/18/17 03:29 Urine Appearance Clear (CLEAR) 12/18/17 03:29 Urine pH 7.0 (5.0 - 8.0) 12/18/17 03:29 Ur Specific [place] 1.005 (1.000-1.030) 12/18/17 03:29 Urine Protein 2+ (NEGATIVE) 12/18/17 03:29 Urine Glucose (UA) 1+ (NEGATIVE) 12/18/17 03:29 Urine Ketones Negative (NEGATIVE) 12/18/17 03:29 Urine Occult Blood Negative (NEGATIVE) 12/18/17 03:29 Urine Nitrite Negative (NEGATIVE) 12/18/17 03:29 Urine Bilirubin Negative (NEGATIVE) 12/18/17 03:29 Urine Urobilinogen Normal (NORMAL) 12/18/17 03:29 Ur Leukocyte Esterase 1+ (NEGATIVE) 12/18/17 03:29 Urine RBC None seen /HPF (NONE SEEN) 12/18/17 03:29 Urine WBC 0-2 /HPF (NONE SEEN) 12/18/17 03:29 Ur Squamous Epith Cells Rare /HPF (NEGATIVE) 12/18/17 03:29 Urine Bacteria Negative /HPF (NEGATIVE) 12/18/17 03:29 Ur Culture Indicated? No/not indicated 12/18/17 03:29 Influenza Type A (PCR) Negative (NEGATIVE) 12/18/17 22:44 Influenza Type B (PCR) Negative (NEGATIVE) 12/18/17 22:44 - Plan (1) Leukocytosis Status: Acute Qualifiers: Leukocytosis type: unspecified Qualified Code(s): D72.829 - Elevated white blood cell count, unspecified Plan: ADMIT, LEVAQUIN 750MG IV DAILY, NORMAL SALINE AT 75ML/HR, MONITOR LABS AND VITALS (2) Mental status alteration Status: Acute Qualifiers: Altered mental status type: transient alteration of awareness Qualified Code(s): R40.4 - Transient alteration of awareness Plan: OBTAIN BRAIN MRI/MRA WITHUT CONTRAST, CONTINUE TO MONITOR (3) Generalized weakness Status: Acute (4) Fever Status: Acute Qualifiers: Fever type: unspecified Qualified Code(s): R50.9 - Fever, unspecified Plan: TYLENOL 650MG PO Q4H PRN FEVER, LEVAQUIN 750MG IV DAILY, CONTINUE TO MONITOR
[2017-12-19] MEDS: COZAAR PO SCH (21:30)
[2017-12-20] MEDS: NS 1000 ML 1,000 ML IV SCH (05:20)
[2017-12-20 05:29] LABS: ALANINE AMINOTRANSFERASE 13 Units/L (12-78); ALKALINE PHOSPHATASE 52 Units/L (46-116); ASPARTATE AMINO TRANSFERASE 13 Units/L (15-37); BLOOD UREA NITROGEN 8 mg/dL (7-18); CALCIUM 8.2 mg/dL (8.5-10.1); CHLORIDE 106 mmol/L (98-107); COR NA(FOR HYPERGLY) 143 mmol/L (136-145); MAGNESIUM 1.6 mg/dL (1.7-2.9); SODIUM 142 mmol/L (136-145); TOTAL PROTEIN 7.1 g/dL (6.4-8.2); eGFR NON BLACK RACES > 60 (>60)
[2017-12-20 06:03] LABS: BASOPHILS # (AUTO) 0.1 X10^3/uL (0.0-0.1); BASOPHILS % (AUTO) 0.9 % (0.2-1.0); EOSINOPHILS # (AUTO) 0.2 x10^3/uL (0.0-0.2); EOSINOPHILS % (AUTO) 2.2 % (0.9-2.9); HEMATOCRIT 31.1 % (36.0-47.0); HEMOGLOBIN 10.4 g/dL (12.0-16.0); LYMPHOCYTES # (AUTO) 2.4 X10^3/uL (1.3-2.9); LYMPHOCYTES % (AUTO) 30.9 % (21.0-51.0); MEAN CORPUSCULAR HEMOGLOBIN 26.4 pg (27.0-34.0); MEAN CORPUSCULAR HGB CONC 33.4 g/dL (33.0-35.0); MEAN CORPUSCULAR VOLUME 79.1 fL (80.0-100.0); MEAN PLATELET VOLUME 8.8 fL (7.4-11.0); MONOCYTES # (AUTO) 0.7 x10^3/uL (0.3-0.8); MONOCYTES % (AUTO) 9.3 % (0.0-13.0); NEUTROPHILS # (AUTO) 4.3 x10^3/uL (2.2-4.8); NEUTROPHILS % (AUTO) 56.7 % (42.0-75.0); PLATELET COUNT 256 X10^3/uL (150.0-450.0); RED BLOOD COUNT 3.94 X10^6/uL (3.5-5.4); RED CELL DISTRIBUTION WIDTH 15.4 % (11.6-16.5); WHITE BLOOD COUNT 7.6 X10^3/uL (3.6-10.0)
[2017-12-20] MEDS ORDERED: GLUCOPHAGE ONE (08:31)
[2017-12-20] MEDS: ECOTRIN TAB 325 MG PO SCH (08:54)
[2017-12-20] MEDS: LEVAQUIN PREMIX IV 750 MG 750 MG/150 ML BAG IV SCH (08:55)
[2017-12-20] MEDS: GLUCOPHAGE PO SCH (08:55)
[2017-12-20] MEDS: NORVASC TAB 10 MG PO SCH (08:55)
[2017-12-20] MEDS: GLUCOTROL PO SCH (08:55)
[2017-12-20] MEDS: PriLOSEC PO SCH (08:55)
[2017-12-20] MEDS ORDERED: MILK OF MAGNESIA PO SCH (09:00)
[2017-12-20 13:49] VITALS: BP 187/88
[2017-12-20] MEDS ORDERED: COLACE CAP 100 MG PO SCH (21:00)
[2017-12-24] MEDS ORDERED: CATAPRES-TTS-3 TD SCH (09:00)
--- NOTE | 2018-01-22 00:28 | DR.CARTERD ---
- Discharge Summary for: Discharge Summary for Date of:: 12/20/17 - Admission Date Date of Admission: 12/18/17 - Admission Diagnoses Admission Diagnosis: (1) Mental status alteration (2) Leukocytosis (3) Generalized weakness (4) Fever - Discharge Date Discharge Date: 12/20/17 - Discharge Diagnoses Discharge Diagnosis: (1) Mental status alteration (2) Leukocytosis (3) Generalized weakness (4) Fever - Hospital Course Hospital Course: ON DAY ONE, MS. ARAUJO IS A 72 YEAR OLD PATIENT OF OURS WHO PRESENTED TO THE EMERGENCY ROOM WITH COMPLAINTS OF DISORIENTATION, CONFUSION, FEVER, AND WEAKNESS. PATIENTS SON STATED THAT SHE WAS IN HER NORMAL STATE OF HEALTH EARLIER IN THE DAY. PATIENT REPORTED DIARRHEA THE DAY PRIOR, BUT NONE SINCE. ON ARRIVAL, VITALS WERE 104.7, 119-22-97%-201/90. LABS WERE OBTAINED. ABNORMAL LAB VALUES INCLUDED THE FOLLOWING: WBC 16.6, HGB 11.8, HCT 35.5, CREATININE 1.15, G LUCOSE 179, PHOSPHORUS 1.7, MAGNESIUM 1.1, TOTAL PROTEIN 8.5, LACTIC ACID 2.6. CARDIAC ENZYMES WITHIN NORMAL LIMITS. URINALYSIS REVEALED WBC 0-2, RBC NONE, LEUKOCYTES 1+, BACTERIA NEGATIVE, INFLUENZA NEGATIVE. CHEST XRAY REVEALED: Cardiomegaly and COPD, without new acute chest process. Hiatal hernia noted. Study is limited. BRAIN CT OBTAINED AND REVEALED: There is no acute intracranial hemorrhage, mass or mass effect. No extra-axial fluid collection or abnormal area of hypoattenuation suggest infarction seen. Ventricles and sulci are normal. Bone windows shows no osseous lesion. Paranasal sinuses and mastoid air cells are clear. There is mild atrophy with ex vacuo ventricular and sulcal enlargement. Periventricular white matter change suggest microangiopathy. EKG REVEALED: SINUS TACHYCARDIA WITH HR 103. SHE WAS ADMITTED TO THE HOSPITAL FOR FURTHER EVALUATION AND TREATMENT OF AMS, FEVER, AND LEUKOCYTOSIS. SHE WAS GIVEN ROCEPHIN 1GM IV X 1 DOSE, TORADOL 15MG IV X 1 DOSE, AND TYLENOL 650MG PO X 1 DOSE IN THE ER. SHE WAS STARTED ON NORMAL SALINE AT 75ML/HR AND LEVAQUIN 750MG IV DAILY. HOME MEDICATIONS RESUMED. WE CONTINUED TO MONITOR PATIENT. ON DAY TWO, SHE WAS SITTING UP IN THE CHAIR WITH EYES CLOSED ON MORNING ROUNDS. SHE AWAKENED AND RESPONDED TO VERBAL STIMULI, BUT CONTINUED WITH CONFUSION AND WEAKNESS. SHE HAD BEEN AFEBRILE THROUGHOUT THE NIGHT. HER VITALS WERE 98.1-67-20-97%-143/65. LABS WERE OBTAINED. ABNORMAL LAB VALUES INCLUDED THE FOLLOWING: HGB 10.1, HCT 30.2, CREATININE 1.11, GLUCOSE 138, CALCIUM 7.9, ALBUMIN 2.9. SHE CONTINUED TO RECEIVE IV ANTIBIOTICS AND NORMAL SALINE AT 75ML/HR. WE OBTAINED A BRAIN MRI/MRA WITHOUT CONTRAST. MRA REPORTED MILD ATHEROSCLEROTIC CHANGES OF THE ICA'S WITH NO SIGNIFICANT STENOSIS IDENTIFIED; NO EVIDENCE FOR ANEURYSM DILATATION OR DISSECTION SEEN. MRI REPORTED NO ACUTE INTRACRANIAL ABNORMALITY. ON DAY THREE, FINAL BLOOD CULTURES NEGATIVE. VITAL SIGNS STABLE, AFEBRILE. WBC 7.6. PATIENT WAS MORE ALERT. LABS WNL. WE PLANNED FOR DISCHARGE. INSTRUCTIONS FOR MEDICATIONS AND FOLLOW UP WERE DISCUSSED WITH PATIENT AND FAMILY, BOTH VOICED UNDERSTANDING. PATIENT DISCHARGED HOME IN STABLE CONDITION WITH FAMILY. - Discharge Medications Discharge Medications: Home Medication List clonidine 0.3 mg TRANSDERMAL WEEKLY 12/18/17 [History] levofloxacin [Levaquin] 750 mg PO DAILY #10 tab 12/20/17 [Rx] rosuvastatin 10 mg PO HS #30 tab 12/20/17 [Rx] Prescriptions: levofloxacin [Levaquin] Micheal Neri rosuvastatin Micheal Neri Glipizide [Glipizide 5 mg] 5 mg PO BID 07/09/13 amlodipine [Norvasc] 2.5 mg PO DAILY 07/09/13 bisoprolol-hydrochlorothiazide 1 tab PO DAILY 07/09/13 omeprazole 20 mg PO DAILY 07/09/13 losartan 100 mg PO HS 10/08/15 metformin 1,000 mg PO BID 10/08/15 aspirin 325 mg PO DAILY 04/03/16 - Discharge Disposition Discharge Disposition: PATIENT IS TO FOLLOW UP IN OUR OFFICE IN ONE WEEK.
== END 2017-12-20 14:45 | disposition home or self-care (01) ==
LOC: ER 02:59 → MED/SURG 02:59
PROVIDERS: ADMIT Obstetrics & Gynecology Obstetrics; ATTEND Internal Medicine
DX: I51.7 Cardiomegaly; K21.9 Gastro-esophageal reflux disease without esophagitis; R94.4 Abnormal results of kidney function studies; E78.2 Mixed hyperlipidemia; D72.828 Other elevated white blood cell count; R26.89 Other abnormalities of gait and mobility; R41.82 Altered mental status, unspecified; R50.9 Fever, unspecified; Z79.01 Long term (current) use of anticoagulants; E11.65 Type 2 diabetes mellitus with hyperglycemia; R25.8 Other abnormal involuntary movements; J44.9 Chronic obstructive pulmonary disease, unspecified; I67.89 Other cerebrovascular disease; R53.1 Weakness
CPT/HCPCS: 36415; 51701; 70450; 70544; 70551; 71010; 71045; 80053; 81001; 82150; 82533; 82550; 82553; 83605; 83690; 83735; 84100; 84484; 85025; 85610; 85730; 87040; 87502; 93005; 96365; 96374; 96375; 99284; A4222; G0378; J0696; J1885; J1956; J3475; J3490; J7030

== ENCOUNTER 2018-08-11 05:08 | Inpatient (IN) ==
--- NOTE | 2018-08-11 05:47 | DR.GENAD ---
HPI Time Seen Time Seen by Provider: 08/11/18 05:20 HPI Comment HPI Comment: PATIENT IS 73YR OLD WHITE FEMALE WITH HISTORY OF HTN, DM DEMENTIA AND PREVIOUS CVA IS IN ED WITH FEVER AND ALTERED MENTAL STATUS. HER SON BROUGHT HER AND HER DAUGHTER IS ON HER WAY. PATIENTS MOUTH IS DRY AND SHE HAS A NON [place] ODUCTIVE COUGH. TEMPERATURE IS ELEVATED IN ED. Complaint/Symptoms Chief Complaint Doctors Comments: FEVER, CONFUSION. Nurses notes reviewed Nurses Notes Review: Yes Source History Provided: Patient and Family Member Mode of Arrival Mode of Arrival: Ambulatory Timing Came on: Suddenly Duration Duration: Constant Duration: Days Severity Severity: Moderate PMH PMH Past Medical History: CVA, Dementia, Diabetes, Dyslipidemia, GERD and Hypertension Past Surgical History: Yes Surgical History: Unknown Family History Family Medical History: Diabetes Mellitus and Hypertension Social History Do you use any recreational Drugs:: No ROS Review of Systems Constitutional: Chills, Fever, Weakness and Fatigue Eyes: negative Eye Pain, Tearing and Discharge ENTM: See HPI, Ear Pain, Nose Discharge, Nose Congestion and Mouth Pain (DRY MOUTH.) Respiratoy: Productive Cough, Non-Productive Cough and Short of Breath; negative Wheezing PE Vital Signs Vitals: Temperature 100.7 F Pulse Rate [Left Brachial] 79 Pulse Rate 104 Respiratory Rate 17 Blood Pressure [Left Arm] 143/64 Blood Pressure [Right Arm] 187/88 Blood Pressure 185/79 O2 Sat by Pulse Oximetry 94 General General Appearance: Alert, Anxious, In Distress and Other (CONFUSE.) Head Head Exam: Normal Inspection, Atraumatic and Normocephalic Eyes Eye exam: EOMI; negative Scleral Icterus and Conjunctival Injection ENT ENT Exam: Normal Oropharynx, Normal External Ear Exam and TM's Normal Bilaterally External Ear Exam: negative Mastoid Tenderness, Pain with Movement and External Tenderness TM/Canal Exam: Bilateral: Normal Nose Exam: Normal Nose Exam; negative Sinus Tenderness, Nasal Deviation and Septal Hematoma Mouth Exam: negative Normal Inspection (MUCOUD MEMBRANE DRY.), Trismus, Lip Swelling, Tongue Elevation and Tongue Swelling Throat Exam: negative Tonsillar Erythema, Tonsillomegaly and Tonsillar Exudate Neck Neck Exam: negative Full ROM, Trachea Midline, Tenderness, Meningismus, Lymphadenopathy and Other Chest Chest Inspection: Symmetric Chest Wall Rise and Tenderness Respiratory Respiratory Exam: Respiratory Distress; negative Accessory Muscle Use and Chest Wall Tenderness Respiratory Exam: Bilateral: Rhonchi, Upper: Rhonchi and Lower: Rhonchi Cardiovascular Cardiovascular Exam: Regular Rate, Tachycardia, Systolic Murmur and Diastolic Murmur Abdominal Exam Abdominal Exam: Normal Bowel Sounds and Soft; negative Tenderness Extremities Extremities Exam: Normal Capillary Refill; negative Edema Back Back Exam: negative (R) CVA Tenderness, (L) CVA Tenderness and Paraspinal Tenderness Neurologic Neurological Exam: Alert and Normal Gait; negative Oriented X3 (CONFUSION) Psychiatric Psychiatric Exam: Normal Affect and Anxious Skin Skin Exam: Dry MDM Additional Information Additional Information Obtained From: Old Records (REVIEWED RECORD 12/18/2017. PATIENT ADMITTED TO HOSPITAL WITH SIMILAR PRESENTATION LIKE TODAY.) Differential Diagnosis Differential Diagnosis: SEPSIS, AMS, CVA, PNEUMONIOA, PA, DM, COURSE Treatment Treatment: SEE ORDERS. ROR Labs Reviewed Laboratory Results Reviewed?: Yes Result Diagrams: 08/11/18 05:52 08/11/18 05:52 Laboratory: 08/11/18 05:51 Labia - Right Side Gram Stain - Final WBC 17.4 X10^3/uL (3.6-10.0) H 08/11/18 05:52 RBC 4.21 X10^6/uL (3.5-5.4) 08/11/18 05:52 Hgb 10.7 g/dL (12.0-16.0) L 08/11/18 05:52 Hct 32.8 % (36.0-47.0) L 08/11/18 05:52 MCV 78.0 fL (80.0-100.0) L 08/11/18 05:52 MCH 25.4 pg (27.0-34.0) L 08/11/18 05:52 MCHC 32.6 g/dL (33.0-35.0) L 08/11/18 05:52 RDW 16.2 % (11.6-16.5) 08/11/18 05:52 Plt Count 256 X10^3/uL (150.0-450.0) 08/11/18 05:52 Plt Count Comment Adequate (ADEQUATE) 08/11/18 05:52 MPV 8.0 fL (7.4-11.0) 08/11/18 05:52 Neut % (Auto) 88.3 % (42.0-75.0) H 08/11/18 05:52 Lymph % (Auto) 6.0 % (21.0-51.0) L 08/11/18 05:52 [place]assen % (Auto) 5.1 % (0.0-13.0) 08/11/18 05:52 Eos % (Auto) 0.2 % (0.9-2.9) L 08/11/18 05:52 Baso % (Auto) 0.4 % (0.2-1.0) 08/11/18 05:52 Neut # (Auto) 15.3 x10^3/uL (2.2-4.8) H 08/11/18 05:52 Lymph # (Auto) 1.0 X10^3/uL (1.3-2.9) L 08/11/18 05:52 [place]assen # (Auto) 0.9 x10^3/uL (0.3-0.8) H 08/11/18 05:52 Eos # (Auto) 0.0 x10^3/uL (0.0-0.2) 08/11/18 05:52 Baso # (Auto) 0.1 X10^3/uL (0.0-0.1) 08/11/18 05:52 Absolute Nucleated RBC 0.0 /100WBC 08/11/18 05:52 Plt Morphology Comment Normal (NORMAL) 08/11/18 05:52 RBC Morphology Normal (NORMAL) 08/11/18 05:52 Sodium 137 mmol/L (136-145) 08/11/18 05:52 Corrected Sodium 140 mmol/L (136-145) 08/11/18 05:52 Potassium 3.7 mmol/L (3.5-5.1) 08/11/18 05:52 Chloride 99 mmol/L (98-107) 08/11/18 05:52 Carbon Dioxide 24.4 mmol/L (21-32) 08/11/18 05:52 BUN 9 mg/dL (7-18) 08/11/18 05:52 Creatinine 1.05 mg/dL (0.55-1.02) H 08/11/18 05:52 Est GFR (MDRD) Af Amer > 60 (>60) 08/11/18 05:52 Est GFR (MDRD) Non-Af 55 (>60) L 08/11/18 05:52 Glucose 222 mg/dL (65-99) H 08/11/18 05:52 POC Glucose (mg/dL) 259 mg/dL (65-99) H 08/11/18 09:47 Lactic Acid 3.1 mmol/L (0.4-2.0) H 08/11/18 05:52 Calcium 9.2 mg/dL (8.5-10.1) 08/11/18 05:52 Corrected Calcium TNP 08/11/18 05:52 Total Bilirubin 0.50 mg/dL (0.2-1.0) 08/11/18 05:52 AST 17 Units/L (15-37) 08/11/18 05:52 ALT 13 Units/L (12-78) 08/11/18 05:52 Alkaline Phosphatase 67 Units/L (46-116) 08/11/18 05:52 Creatine Kinase 101 Units/L (26-192) 08/11/18 05:52 CK-MB (CK-2) 1.0 ng/mL (0-4.0) 08/11/18 05:52 CK/CKMB % Calc 1.0 % (<4) 08/11/18 05:52 Troponin I < 0.02 ng/mL (0-1.5) 08/11/18 05:52 C-Reactive Protein 17.10 mg/L (0-3.0) H 08/11/18 05:52 Total Protein 8.4 g/dL (6.4-8.2) H 08/11/18 05:52 Albumin 4.0 g/dL (3.4-5.0) 08/11/18 05:52 Globulin 4.4 g/dL (2.5-4.5) 08/11/18 05:52 Albumin/Globulin Ratio 0.9 Ratio (1.1-2.1) L 08/11/18 05:52 Specimen Type Catherized urine 08/11/18 05:51 Urine Color Yellow (YELLOW) 08/11/18 05:51 Urine Appearance Slightly hazy (CLEAR) 08/11/18 05:51 Urine pH 8.0 (5.0 - 8.0) 08/11/18 05:51 Ur Specific [place] 1.010 (1.000-1.030) 08/11/18 05:51 Urine Protein 2+ (NEGATIVE) 08/11/18 05:51 Urine Glucose (UA) Negative (NEGATIVE) 08/11/18 05:51 Urine Ketones Negative (NEGATIVE) 08/11/18 05:51 Urine Occult Blood Negative (NEGATIVE) 08/11/18 05:51 Urine Nitrite Negative (NEGATIVE) 08/11/18 05:51 Urine Bilirubin Negative (NEGATIVE) 08/11/18 05:51 Urine Urobilinogen Normal (NORMAL) 08/11/18 05:51 Ur Leukocyte Esterase Negative (NEGATIVE) 08/11/18 05:51 Urine RBC None seen /HPF (NONE SEEN) 08/11/18 05:51 Urine WBC 0-2 /HPF (NONE SEEN) 08/11/18 05:51 Ur Squamous Epith Cells Rare /HPF (NEGATIVE) 08/11/18 05:51 Urine Bacteria Negative /HPF (NEGATIVE) 08/11/18 05:51 Urine Mucus Few /HPF (NEGATIVE) 08/11/18 05:51 Ur Culture Indicated? No/not indicated 08/11/18 05:51
[2018-08-11] MEDS: NS 1000 ML 1,000 ML IV SCH ×3 (06:00→23:38)
--- NOTE | 2018-08-11 06:00 | RAD ---
HISTORY: Fever Study: Chest AP portable Comparison: 12/18/2017 Findings: Patient is rotated to the left. The heart is enlarged. No congestive heart failure is noted. The aorta is calcified and ectatic. The lung [place] tor[place] are clear. There is a hiatal hernia present. The bony thorax is unremarkable. IMPRESSION: Mild cardiomegaly without congestive heart failure Lungs clear Hiatal hernia Reported By:
[2018-08-11 06:16] LABS: BASOPHILS # (AUTO) 0.1 X10^3/uL (0.0-0.1); BASOPHILS % (AUTO) 0.4 % (0.2-1.0); EOSINOPHILS % (AUTO) 0.2 % (0.9-2.9); HEMATOCRIT 32.8 % (36.0-47.0); HEMOGLOBIN 10.7 g/dL (12.0-16.0); MEAN CORPUSCULAR HEMOGLOBIN 25.4 pg (27.0-34.0); MEAN CORPUSCULAR HGB CONC 32.6 g/dL (33.0-35.0); MONOCYTES # (AUTO) 0.9 x10^3/uL (0.3-0.8); MONOCYTES % (AUTO) 5.1 % (0.0-13.0); NEUTROPHILS # (AUTO) 15.3 x10^3/uL (2.2-4.8); NEUTROPHILS % (AUTO) 88.3 % (42.0-75.0); PLATELET COUNT 256 X10^3/uL (150.0-450.0); RED BLOOD COUNT 4.21 X10^6/uL (3.5-5.4); RED CELL DISTRIBUTION WIDTH 16.2 % (11.6-16.5); WHITE BLOOD COUNT 17.4 X10^3/uL (3.6-10.0)
[2018-08-11 06:21] LABS: BILIRUBIN,URINE NEGATIVE (NEGATIVE); BLOOD/HEMOGLOBIN,URINE NEGATIVE (NEGATIVE); GLUCOSE, URINE NEGATIVE (NEGATIVE); KETONES,URINE NEGATIVE (NEGATIVE); LEUKOCYTE ESTERASE ,URINE NEGATIVE (NEGATIVE); NITRITES,URINE NEGATIVE (NEGATIVE); PROTEIN,URINE 2+ (NEGATIVE); UROBILINOGEN,URINE NORMAL (NORMAL)
[2018-08-11 06:32] LABS: LACTIC ACID 3.1 mmol/L (0.4-2.0)
[2018-08-11 06:34] LABS: PLATELET MORPHOLOGY COMMENT NORMAL (NORMAL)
[2018-08-11 06:34] LABS: APPEARANCE,URINE SLIGHTLY HAZY (CLEAR); BACTERIA,URINE NEGATIVE /HPF (NEGATIVE); COLOR,URINE YELLOW (YELLOW); MUCUS,URINE FEW /HPF (NEGATIVE); RBC,URINE NONE SEEN /HPF (NONE SEEN); SQUAMOUS EPITHELIAL CELL,UR RARE /HPF (NEGATIVE)
[2018-08-11] MEDS ORDERED: TYLENOL 500 MG TAB EXTRA STRENGTH PO ONE ×2 (06:40→06:43)
[2018-08-11] MEDS ORDERED: NS 100 ML IV + SPIKE MINIBAG* 100 ML ONE ×2 (06:40→14:17)
[2018-08-11] MEDS ORDERED: ZOSYN VIAL 3.375 GRAMS IV ONE ×2 (06:41→14:17)
[2018-08-11] MEDS ORDERED: ZOSYN VIAL 3.375 GRAMS 3.375 G in NS 100 ML IV + SPIKE MINIBAG* 100 ML IV ONE (06:42)
[2018-08-11 07:14] LABS: CHLORIDE 99 mmol/L (98-107)
--- NOTE | 2018-08-11 07:15 | CT ---
HISTORY: Altered mental status Study: CT head without contrast Comparison: 12/18/2017 Technique: Axial noncontrast images with coronal and sagittal reformats. Dose reduction procedures were used with mA/kv adjusted for body size. Findings: The ventricles, cortical sulci, and other CSF spaces are minimally enlarged consistent with minimal atrophy likely age related. There is decreased attenuation in the periventricular white matter suggestive of small vessel vascular disease. There is no definite evidence for visible recent or old CVA, hemorrhage, mass lesion, or extra-axial fluid collection. The calvarium is intact. The visualized sinuses are clear. IMPRESSION: No acute intracranial abnormality Mild generalized atrophy likely age related Small vessel disease Reported By:
[2018-08-11 07:28] LABS: ALANINE AMINOTRANSFERASE 13 Units/L (12-78); ALKALINE PHOSPHATASE 67 Units/L (46-116); ASPARTATE AMINO TRANSFERASE 17 Units/L (15-37); BLOOD UREA NITROGEN 9 mg/dL (7-18); CALCIUM 9.2 mg/dL (8.5-10.1); CARBON DIOXIDE 24.4 mmol/L (21-32); COR NA(FOR HYPERGLY) 140 mmol/L (136-145); CREATINE KINASE 101 Units/L (26-192); CREATININE 1.05 mg/dL (0.55-1.02); SODIUM 137 mmol/L (136-145); TOTAL PROTEIN 8.4 g/dL (6.4-8.2); TROPONIN I < 0.02 ng/mL (0-1.5); eGFR NON BLACK RACES 55 (>60)
[2018-08-11] MEDS: OFIRMEV IV 1000 MG VIAL 500 MG/50 ML VIAL IV PRN ×2 (12:22→19:56)
[2018-08-11] MEDS ORDERED: ZOSYN VIAL 3.375 GRAMS IV SCH (14:00)
[2018-08-11] MEDS: ZOSYN VIAL 3.375 GRAMS 3.375 G in NS 100 ML IV + SPIKE MINIBAG* 100 ML IV SCH ×2 (14:19→21:16)
[2018-08-11 18:24] VITALS: BMI 26.9
[2018-08-12] MEDS: ZOSYN VIAL 3.375 GRAMS 3.375 G in NS 100 ML IV + SPIKE MINIBAG* 100 ML IV SCH ×3 (05:33→21:03)
[2018-08-12 05:46] LABS: BASOPHILS # (AUTO) 0.1 X10^3/uL (0.0-0.1); BASOPHILS % (AUTO) 0.6 % (0.2-1.0); HEMATOCRIT 26.2 % (36.0-47.0); HEMOGLOBIN 8.6 g/dL (12.0-16.0); LYMPHOCYTES # (AUTO) 1.5 X10^3/uL (1.3-2.9); LYMPHOCYTES % (AUTO) 17.4 % (21.0-51.0); MEAN CORPUSCULAR HEMOGLOBIN 26.2 pg (27.0-34.0); MEAN CORPUSCULAR HGB CONC 32.9 g/dL (33.0-35.0); MEAN CORPUSCULAR VOLUME 79.7 fL (80.0-100.0); MEAN PLATELET VOLUME 8.5 fL (7.4-11.0); MONOCYTES # (AUTO) 0.5 x10^3/uL (0.3-0.8); MONOCYTES % (AUTO) 5.9 % (0.0-13.0); NEUTROPHILS # (AUTO) 6.6 x10^3/uL (2.2-4.8); NEUTROPHILS % (AUTO) 76.1 % (42.0-75.0); PLATELET COUNT 182 X10^3/uL (150.0-450.0); RED BLOOD COUNT 3.29 X10^6/uL (3.5-5.4); RED CELL DISTRIBUTION WIDTH 15.9 % (11.6-16.5); WHITE BLOOD COUNT 8.6 X10^3/uL (3.6-10.0)
[2018-08-12] MEDS: NS 1000 ML 1,000 ML IV SCH ×2 (05:57→18:05)
[2018-08-12 06:04] LABS: ALBUMIN 2.7 g/dL (3.4-5.0); CALCIUM 7.6 mg/dL (8.5-10.1); CARBON DIOXIDE 26.2 mmol/L (21-32); COR CA(FOR HYPOALB) 8.6 mg/dL (8.5-10.1); CREATININE 1.16 mg/dL (0.55-1.02); MAGNESIUM 1.3 mg/dL (1.7-2.9); TOTAL PROTEIN 6.1 g/dL (6.4-8.2)
[2018-08-12] MEDS ORDERED: POTASSIUM CHL 60 MEQ/NS 0.45% 500 ML IV PRN (07:04)
[2018-08-12] MEDS ORDERED: K-RIDER 10 MEQ/NS 100 ML 10 MEQ/100 ML BAG IV PRN (07:04)
[2018-08-12] MEDS ORDERED: POTASSIUM CHL 40 MEQ/NS 0.45% 500 ML IV PRN (07:04)
[2018-08-12] MEDS ORDERED: POTASSIUM CHLORIDE LIQ 20 MEQ UDC PO PRN (07:04)
[2018-08-12] MEDS ORDERED: MICRO K EXTEN CAP 10 MEQ PO PRN (07:04)
[2018-08-12] MEDS ORDERED: KLOR-CON PO PRN (07:04)
[2018-08-12] MEDS: K-DUR TAB 20 MEQ PO PRN ×2 (08:25→13:28)
[2018-08-12] MEDS: MAGNESIUM SULFATE 1 GRAM/100 mL PREMIX 1 GM/100 ML BAG IV PRN ×4 (10:26→14:00)
[2018-08-12] MEDS ORDERED: MAGNESIUM CHLORIDE PO SCH (13:45)
[2018-08-12] MEDS ORDERED: VITAMIN D (1.25MG) PO SCH (13:45)
[2018-08-12] MEDS ORDERED: GLUCOPHAGE ONE ×2 (14:06→20:06)
[2018-08-12] MEDS: ECOTRIN TAB 325 MG PO SCH (14:08)
[2018-08-12] MEDS: GLUCOPHAGE PO SCH ×2 (14:09→20:22)
[2018-08-12] MEDS: ZEBETA TAB 5 MG PO SCH (14:10)
[2018-08-12] MEDS: ZIAC 5/6.25 MG PO SCH (14:10)
[2018-08-12] MEDS: PriLOSEC PO SCH (14:10)
[2018-08-12] MEDS: NORVASC TAB 10 MG PO SCH (14:10)
[2018-08-12] MEDS ORDERED: PHARMACY CONSULT - DOSE _____ XX SCH (17:00)
[2018-08-12] MEDS: SNACK - Diabetic Appropriate PO SCH (20:22)
[2018-08-12] MEDS: GLUCOTROL PO SCH (20:23)
[2018-08-12] MEDS: CRESTOR TAB 10 MG PO SCH (20:23)
[2018-08-12] MEDS: COZAAR PO SCH (20:26)
--- NOTE | 2018-08-12 21:51 | DR.H&P ---
H&P - History & Physical for Day of: H&P Date: 08/11/18 - Chief Complaint Chief Complaint: FEVER, CONFUSION, RLE REDNESS - History of Present Illness History of Present Illness: IS A 73 YEAR OLD PATIENT OF OURS WHO PRESENTED TO THE ER WITH COMPLAINTS OF FEVER AND ALTERED MENTAL STATUS. SHE REPORTS REDNESS TO THE RIGHT LOWER LEG AND A PRODUCTIVE COUGH. PATIENT HAS A MEDICAL HISTORY OF HTN, DIABETES, DEMENTIA, AND CVA. ON ARRIVAL, VITALS WERE 103.1, 104, 18, 98%, 185/79. LABS WERE OBTAINED. ABNORMAL LAB VALUES INCLUDE THE FOLLOWING: WBC 17.4, HGB 10.7, HCT 32.8, POTASSIUM 3.3, CREATININE 1.16, GLUCOSE 188, CALCIUM 7.6, MAGNESIUM 1.3, ALT 8, CRP 147.10, TOTAL PROTEIN 6.1, ALBUMIN 2.7. URINALYSIS UNREMARKABLE. BLOOD CULTURES AND WOUND CULTURES PENDING. A CHEST XRAY WAS OBTAINED AND REVEALED: Mild cardiomegaly without congestive heart failure. Lungs clear. Hiatal hernia. EKG REVEALED SINUS RHYTHM WITH HR 92. SHE WAS ADMITTED TO THE HOSPITAL FOR FURTHER EVALUATION AND TREATMENT OF AMS, RLE CELLULITIS, AND FEVER. SHE WAS STARTED ON ZOSYN 3.375G IV TID, NORMAL SALINE AT 125ML/HR, THE MAGNESIUM AND POTASSIUM PROTOCOL, AND HOME MEDS WERE RESUMED. WE PLAN TO FOLLOW UP WITH AM LABS AND CONTINUE TO MONITOR. - Past Medical History Past Medical History: Hypertension, Dyslipidemia, Diabetes, Dementia, CVA, GERD Additional Medical History: Bronchitis, Urinary Tract Infections, Muscle Weakness - Past Surgical History Surgical History: Other - Family History Family Medical History: Diabetes Mellitus, Coronary Artery Disease, Hypertension - Social History Does patient currently use any type of tobacco product: No Have you used tobacco products in the last 12 months: No Type of Tobacco Use: Cigarettes Does any household member use tobacco: No Alcohol Use: None Drug Use: None - Medications Home Medications: No Known Drug Allergies Allergy (Verified 09/24/16 14:01) CONTINUE taking the following medications ergocalciferol (vitamin D2) [Vitamin D2] 1 cap PO WEEKLY 08/11/18 [History] magnesium chloride [Mag 64] 1 tab PO DAILY 08/11/18 [History] - Review of Systems Constitutional: See HPI, Fever, Weakness Eyes: No Symptoms Reported ENT: No Symptoms Reported Respiratory: No Symptoms Reported Cardiovascular: No Symptoms Reported Gastrointestinal: No Symptoms Reported Genitourinary: No Symptoms Reported Musculoskeletal: No Symptoms Reported Skin: See HPI Neurological: Weakness, Confusion - Physical Exam Vital Signs: Temperature 98.1 F Pulse Rate [Left Brachial] 69 Pulse Rate 104 Respiratory Rate 18 Blood Pressure [Left Arm] 174/74 Blood Pressure [Right Arm] 187/88 Blood Pressure 185/79 O2 Sat by Pulse Oximetry 96 Oriented: Normal Eyes: Normal Ear: Normal Nose: Normal Throat: Normal Respiratory: Diminished Throughout Cardiovascular: Tachycardia. negative: S3, S4, Murmur : Normal Auscultation: Bowel Sounds: Normal Palpation: Normal Tenderness: Normal Skin: Red (RIGHT LOWER EXTREMITY ), Tender, Hot Musculoskeletal: Normal Psychiatric: Other (CONFUSION/DISORIENTATION ) Mood Description: Calm Affect: Normal Speech Pattern: Clear - Assessment/Plan (1) Cellulitis of right leg Status: Acute Plan: ZOSYN 3.375G IV TID, CONTINUE TO MONITOR (2) Mental status alteration Qualifiers: Altered mental status type: transient alteration of awareness Status: Acute (3) Generalized weakness Status: Acute (4) Hypokalemia Status: Acute Plan: POTASSIUM PROTOCOL, CONTINUE TO MONITOR (5) Hypomagnesemia Status: Acute Plan: MAGNESIUM PROTOCOL, CONTINUE TO MONITOR - Allergies Allergies/Adverse Reactions: Allergies Allergy/AdvReac Type Severity Reaction Status Date / Time No Known Drug Allergies Allergy Verified 09/24/16 14:01
[2018-08-13] MEDS: NS 1000 ML 1,000 ML IV SCH ×4 (01:29→18:03)
[2018-08-13] MEDS: ZOSYN VIAL 3.375 GRAMS 3.375 G in NS 100 ML IV + SPIKE MINIBAG* 100 ML IV SCH ×3 (05:12→21:17)
[2018-08-13 05:51] LABS: BASOPHILS # (AUTO) 0.1 X10^3/uL (0.0-0.1); BASOPHILS % (AUTO) 0.6 % (0.2-1.0); EOSINOPHILS # (AUTO) 0.1 x10^3/uL (0.0-0.2); EOSINOPHILS % (AUTO) 0.5 % (0.9-2.9); HEMATOCRIT 29.8 % (36.0-47.0); HEMOGLOBIN 9.8 g/dL (12.0-16.0); LYMPHOCYTES # (AUTO) 1.9 X10^3/uL (1.3-2.9); LYMPHOCYTES % (AUTO) 17.8 % (21.0-51.0); MEAN CORPUSCULAR HEMOGLOBIN 25.6 pg (27.0-34.0); MEAN CORPUSCULAR HGB CONC 32.7 g/dL (33.0-35.0); MEAN CORPUSCULAR VOLUME 78.3 fL (80.0-100.0); MEAN PLATELET VOLUME 8.5 fL (7.4-11.0); MONOCYTES # (AUTO) 0.7 x10^3/uL (0.3-0.8); MONOCYTES % (AUTO) 6.3 % (0.0-13.0); NEUTROPHILS # (AUTO) 8.1 x10^3/uL (2.2-4.8); NEUTROPHILS % (AUTO) 74.8 % (42.0-75.0); PLATELET COUNT 237 X10^3/uL (150.0-450.0); RED BLOOD COUNT 3.81 X10^6/uL (3.5-5.4); RED CELL DISTRIBUTION WIDTH 16.3 % (11.6-16.5); WHITE BLOOD COUNT 10.8 X10^3/uL (3.6-10.0)
[2018-08-13 06:17] LABS: ALANINE AMINOTRANSFERASE 10 Units/L (12-78); ALBUMIN 3.2 g/dL (3.4-5.0); ALKALINE PHOSPHATASE 64 Units/L (46-116); ASPARTATE AMINO TRANSFERASE 20 Units/L (15-37); BLOOD UREA NITROGEN 6 mg/dL (7-18); CALCIUM 8.7 mg/dL (8.5-10.1); CARBON DIOXIDE 25.3 mmol/L (21-32); CHLORIDE 104 mmol/L (98-107); COR CA(FOR HYPOALB) 9.3 mg/dL (8.5-10.1); COR NA(FOR HYPERGLY) 139 mmol/L (136-145); CREATININE 0.89 mg/dL (0.55-1.02); MAGNESIUM 1.7 mg/dL (1.7-2.9); SODIUM 138 mmol/L (136-145); TOTAL PROTEIN 7.3 g/dL (6.4-8.2); eGFR NON BLACK RACES > 60 (>60)
[2018-08-13 06:25] LABS: HYPOCHROMASIA SLIGHT; PLATELET MORPHOLOGY COMMENT NORMAL (NORMAL)
[2018-08-13] MEDS ORDERED: ZIAC 5/6.25 MG PO SCH (09:00)
[2018-08-13] MEDS ORDERED: CATAPRES-TTS-3 TD SCH (09:00)
[2018-08-13] MEDS ORDERED: GLUCOPHAGE ONE ×2 (09:20→21:04)
[2018-08-13] MEDS: PriLOSEC PO SCH (09:36)
[2018-08-13] MEDS: ZEBETA TAB 5 MG PO SCH (09:37)
[2018-08-13] MEDS: ZIAC 5/6.25 MG PO SCH (09:37)
[2018-08-13] MEDS: NORVASC TAB 10 MG PO SCH (09:37)
[2018-08-13] MEDS: ECOTRIN TAB 325 MG PO SCH (09:38)
[2018-08-13] MEDS: GLUCOPHAGE PO SCH ×2 (09:38→21:16)
[2018-08-13] MEDS: GLUCOTROL PO SCH ×2 (09:38→21:16)
[2018-08-13] MEDS: LOVENOX INJ 40 MG SYR SC SCH (10:37)
[2018-08-13] MEDS: SNACK - Diabetic Appropriate PO SCH (21:15)
[2018-08-13] MEDS: CRESTOR TAB 10 MG PO SCH (21:16)
[2018-08-13] MEDS: COZAAR PO SCH (21:16)
--- NOTE | 2018-08-13 22:18 | PCM.PROG ---
Progress Note - Progress Note for Day of Date of Exam: 08/12/18 - Subjective Subjective: WAS ADMITTED FOR RLE CELLULITIS, AMS, AND FEVER. TODAY, SHE IS ALERT AND ORIENTED, SITTING UP IN BED ON MORNING ROUNDS. SHE REPORTS GENERALIZED WEAKNESS TODAY. ON EXAMINATION, HEART IS REGULAR IN RATE AND RHYTHM. BILATERAL LUNGS ARE NOTED WITH DIMINSHED LUNG SOUNDS THROUGHOUT. ABDOMEN IS ROUND, SOFT, AND NON-TENDER WITH NORMAL BOWEL SOUNDS NOTED IN ALL QUADRANTS. RIGHT LOWER EXTREMITY CONTINUE WITH ERYTHEMA AND EDEMA. HER VITALS THIS MORNING ARE: 97.9-67-20-96%-178/78. LABS WERE OBTAINED. ABNORMAL LAB VALUES INCLUDE THE FOLLOWING: RBC 3.29, HGB 8.6, HCT 26.2, POTASSIUM 3.3, CREATININE 1.16, GLUCOSE 188, CALCIUM 7.6, MAGNESIUM 1.3, ALT 8, CRP 147.10, TOTAL PROTEIN 6.1, ALBUMIN 2.7. WOUND AND BLOOD CULTURES ARE PENDING. SHE IS CURRENTLY RECEIVING ZOSYN 3.375G IV TID, NORMAL SALINE AT 125ML/HR, AND HOME MEDS WERE RESUMED. WE WILL CONTINUE WITH CURRENT PLAN OF CARE TODAY. OTHERWISE, WE PLAN TO FOLLOW UP WITH AM LABS AND CONTINUE TO MONITOR. - Past Medical Family Social History Past Med/Fam/Surg Hx: No changes since H&P Allergies: Allergies No Known Drug Allergies Allergy (Verified 09/24/16 14:01) - Review of Systems ROS: No change since H&P - Vital Signs and I&O's Vital Signs: Temperature 100.1 F Pulse Rate [Left Brachial] 86 Pulse Rate 104 Respiratory Rate 20 Blood Pressure [Left Arm] 183/89 Blood Pressure [Right Arm] 187/88 Blood Pressure 185/79 O2 Sat by Pulse Oximetry 95 Intake and Output: Intake & Output 08/11/18 08/12/18 08/13/18 08/14/18 11:59 11:59 11:59 11:59 Intake Total 390 / 390 4572 / 4572 1980 Balance 390 / 390 4572 / 4572 1980 - Physical Exam Oriented: Normal Eyes: Normal Ear: Normal Nose: Normal Throat: Normal Respiratory: Generalized, Diminished Cardiovascular: Tachycardia. negative: S3, S4, Murmur : Normal Auscultation: Bowel Sounds: Normal Palpation: Normal Tenderness: Normal Skin: Red (RIGHT LOWER EXTREMITY ), Tender, Hot Musculoskeletal: Normal Psychiatric: Other (CONFUSION/DISORIENTATION ) Mood Description: Calm Affect: Normal Speech Pattern: Clear, Appropriate - Laboratory and Diagnostics Result Diagrams: 08/13/18 05:19 08/13/18 05:19 Labs: 08/11/18 06:00 Blood Blood Culture - Preliminary 08/11/18 05:52 Blood Blood Culture - Preliminary 08/11/18 05:51 Labia - Right Side Gram Stain - Final 08/11/18 05:51 Labia - Right Side Wound Culture - Preliminary Laboratory WBC 10.8 X10^3/uL (3.6-10.0) H 08/13/18 05:19 RBC 3.81 X10^6/uL (3.5-5.4) 08/13/18 05:19 Hgb 9.8 g/dL (12.0-16.0) L 08/13/18 05:19 Hct 29.8 % (36.0-47.0) L 08/13/18 05:19 MCV 78.3 fL (80.0-100.0) L 08/13/18 05:19 MCH 25.6 pg (27.0-34.0) L 08/13/18 05:19 MCHC 32.7 g/dL (33.0-35.0) L 08/13/18 05:19 RDW 16.3 % (11.6-16.5) 08/13/18 05:19 Plt Count 237 X10^3/uL (150.0-450.0) 08/13/18 05:19 Plt Count Comment Adequate (ADEQUATE) 08/13/18 05:19 MPV 8.5 fL (7.4-11.0) 08/13/18 05:19 Neut % (Auto) 74.8 % (42.0-75.0) 08/13/18 05:19 Lymph % (Auto) 17.8 % (21.0-51.0) L 08/13/18 05:19 Barnes % (Auto) 6.3 % (0.0-13.0) 08/13/18 05:19 Eos % (Auto) 0.5 % (0.9-2.9) L 08/13/18 05:19 Baso % (Auto) 0.6 % (0.2-1.0) 08/13/18 05:19 Neut # (Auto) 8.1 x10^3/uL (2.2-4.8) H 08/13/18 05:19 Lymph # (Auto) 1.9 X10^3/uL (1.3-2.9) 08/13/18 05:19 Barnes # (Auto) 0.7 x10^3/uL (0.3-0.8) 08/13/18 05:19 Eos # (Auto) 0.1 x10^3/uL (0.0-0.2) 08/13/18 05:19 Baso # (Auto) 0.1 X10^3/uL (0.0-0.1) 08/13/18 05:19 Absolute Nucleated RBC 0.0 /100WBC 08/13/18 05:19 Plt Morphology Comment Normal (NORMAL) 08/13/18 05:19 RBC Morphology Abnormal (NORMAL) A 08/13/18 05:19 Hypochromasia Slight A 08/13/18 05:19 Sodium 138 mmol/L (136-145) 08/13/18 05:19 Corrected Sodium 139 mmol/L (136-145) 08/13/18 05:19 Potassium 3.9 mmol/L (3.5-5.1) 08/13/18 05:19 Chloride 104 mmol/L (98-107) 08/13/18 05:19 Carbon Dioxide 25.3 mmol/L (21-32) 08/13/18 05:19 BUN 6 mg/dL (7-18) L 08/13/18 05:19 Creatinine 0.89 mg/dL (0.55-1.02) 08/13/18 05:19 Est GFR (MDRD) Af Amer > 60 (>60) 08/13/18 05:19 Est GFR (MDRD) Non-Af > 60 (>60) 08/13/18 05:19 Glucose 159 mg/dL (65-99) H 08/13/18 05:19 POC Glucose (mg/dL) 169 mg/dL (65-99) H 08/13/18 21:14 Lactic Acid 3.1 mmol/L (0.4-2.0) H 08/11/18 05:52 Calcium 8.7 mg/dL (8.5-10.1) 08/13/18 05:19 Corrected Calcium 9.3 mg/dL (8.5-10.1) 08/13/18 05:19 Magnesium 1.7 mg/dL (1.7-2.9) 08/13/18 05:19 Total Bilirubin 0.60 mg/dL (0.2-1.0) 08/13/18 05:19 AST 20 Units/L (15-37) 08/13/18 05:19 ALT 10 Units/L (12-78) L 08/13/18 05:19 Alkaline Phosphatase 64 Units/L (46-116) 08/13/18 05:19 Creatine Kinase 101 Units/L (26-192) 08/11/18 05:52 CK-MB (CK-2) 1.0 ng/mL (0-4.0) 08/11/18 05:52 CK/CKMB % Calc 1.0 % (<4) 08/11/18 05:52 Troponin I < 0.02 ng/mL (0-1.5) 08/11/18 05:52 C-Reactive Protein 147.10 mg/L (0-3.0) H 08/12/18 05:07 Total Protein 7.3 g/dL (6.4-8.2) 08/13/18 05:19 Albumin 3.2 g/dL (3.4-5.0) L 08/13/18 05:19 Globulin 4.1 g/dL (2.5-4.5) 08/13/18 05:19 Albumin/Globulin Ratio 0.8 Ratio (1.1-2.1) L 08/13/18 05:19 Specimen Type Catherized urine 08/11/18 05:51 Urine Color Yellow (YELLOW) 08/11/18 05:51 Urine Appearance Slightly hazy (CLEAR) 08/11/18 05:51 Urine pH 8.0 (5.0 - 8.0) 08/11/18 05:51 Ur Specific [place] 1.010 (1.000-1.030) 08/11/18 05:51 Urine Protein 2+ (NEGATIVE) 08/11/18 05:51 Urine Glucose (UA) Negative (NEGATIVE) 08/11/18 05:51 Urine Ketones Negative (NEGATIVE) 08/11/18 05:51 Urine Occult Blood Negative (NEGATIVE) 08/11/18 05:51 Urine Nitrite Negative (NEGATIVE) 08/11/18 05:51 Urine Bilirubin Negative (NEGATIVE) 08/11/18 05:51 Urine Urobilinogen Normal (NORMAL) 08/11/18 05:51 Ur Leukocyte Esterase Negative (NEGATIVE) 08/11/18 05:51 Urine RBC None seen /HPF (NONE SEEN) 08/11/18 05:51 Urine WBC 0-2 /HPF (NONE SEEN) 08/11/18 05:51 Ur Squamous Epith Cells Rare /HPF (NEGATIVE) 08/11/18 05:51 Urine Bacteria Negative /HPF (NEGATIVE) 08/11/18 05:51 Urine Mucus Few /HPF (NEGATIVE) 08/11/18 05:51 Ur Culture Indicated? No/not indicated 08/11/18 05:51 - Plan (1) Cellulitis of right leg Status: Acute Plan: ZOSYN 3.375G IV TID, CONTINUE TO MONITOR (2) Mental status alteration Status: Acute Qualifiers: Altered mental status type: transient alteration of awareness (3) Generalized weakness Status: Acute (4) Hypokalemia Status: Acute Plan: POTASSIUM PROTOCOL, CONTINUE TO MONITOR (5) Hypomagnesemia Status: Acute Plan: MAGNESIUM PROTOCOL, CONTINUE TO MONITOR
[2018-08-14] MEDS: ROBITUSSIN DM PO PRN (00:03)
[2018-08-14] MEDS: NS 1000 ML 1,000 ML IV SCH ×4 (02:35→17:41)
[2018-08-14] MEDS: ZOSYN VIAL 3.375 GRAMS 3.375 G in NS 100 ML IV + SPIKE MINIBAG* 100 ML IV SCH ×3 (05:17→21:13)
[2018-08-14 05:37] LABS: BASOPHILS # (AUTO) 0.1 X10^3/uL (0.0-0.1); BASOPHILS % (AUTO) 0.6 % (0.2-1.0); EOSINOPHILS # (AUTO) 0.1 x10^3/uL (0.0-0.2); EOSINOPHILS % (AUTO) 1.4 % (0.9-2.9); HEMATOCRIT 27.5 % (36.0-47.0); HEMOGLOBIN 9.1 g/dL (12.0-16.0); LYMPHOCYTES # (AUTO) 2.5 X10^3/uL (1.3-2.9); LYMPHOCYTES % (AUTO) 25.6 % (21.0-51.0); MEAN CORPUSCULAR HEMOGLOBIN 26.3 pg (27.0-34.0); MEAN CORPUSCULAR HGB CONC 33.1 g/dL (33.0-35.0); MEAN CORPUSCULAR VOLUME 79.3 fL (80.0-100.0); MEAN PLATELET VOLUME 8.2 fL (7.4-11.0); MONOCYTES # (AUTO) 0.8 x10^3/uL (0.3-0.8); MONOCYTES % (AUTO) 8.4 % (0.0-13.0); NEUTROPHILS # (AUTO) 6.2 x10^3/uL (2.2-4.8); PLATELET COUNT 247 X10^3/uL (150.0-450.0); RED BLOOD COUNT 3.46 X10^6/uL (3.5-5.4); WHITE BLOOD COUNT 9.6 X10^3/uL (3.6-10.0)
[2018-08-14 05:44] LABS: ALANINE AMINOTRANSFERASE 10 Units/L (12-78); ALBUMIN 2.9 g/dL (3.4-5.0); ALKALINE PHOSPHATASE 63 Units/L (46-116); ASPARTATE AMINO TRANSFERASE 17 Units/L (15-37); BLOOD UREA NITROGEN 4 mg/dL (7-18); CALCIUM 8.4 mg/dL (8.5-10.1); CARBON DIOXIDE 27.6 mmol/L (21-32); CHLORIDE 103 mmol/L (98-107); COR CA(FOR HYPOALB) 9.3 mg/dL (8.5-10.1); COR NA(FOR HYPERGLY) 142 mmol/L (136-145); CREATININE 0.86 mg/dL (0.55-1.02); SODIUM 141 mmol/L (136-145); eGFR NON BLACK RACES > 60 (>60)
[2018-08-14] MEDS: K-DUR TAB 20 MEQ PO PRN (06:07)
[2018-08-14] MEDS ORDERED: GLUCOPHAGE ONE ×2 (09:38→20:22)
[2018-08-14] MEDS: PriLOSEC PO SCH (09:42)
[2018-08-14] MEDS: ECOTRIN TAB 325 MG PO SCH (09:42)
[2018-08-14] MEDS: ZIAC 5/6.25 MG PO SCH (09:42)
[2018-08-14] MEDS: ZEBETA TAB 5 MG PO SCH (09:42)
[2018-08-14] MEDS: GLUCOTROL PO SCH ×2 (09:43→21:12)
[2018-08-14] MEDS: NORVASC TAB 10 MG PO SCH (09:43)
[2018-08-14] MEDS: GLUCOPHAGE PO SCH ×2 (09:46→21:12)
[2018-08-14] MEDS: LOVENOX INJ 40 MG SYR SC SCH (09:47)
[2018-08-14] MEDS ORDERED: ZOFRAN INJ 4 MG VIAL IVP PRN (18:32)
[2018-08-14] MEDS: SNACK - Diabetic Appropriate PO SCH (20:55)
[2018-08-14] MEDS: COZAAR PO SCH (21:12)
[2018-08-14] MEDS: CRESTOR TAB 10 MG PO SCH (21:12)
--- NOTE | 2018-08-14 21:35 | PCM.PROG ---
Progress Note - Progress Note for Day of Date of Exam: 08/13/18 - Subjective Subjective: WAS ADMITTED FOR RLE CELLULITIS, AMS, AND FEVER. TODAY, SHE IS ALERT AND ORIENTED, SITTING UP IN BED ON MORNING ROUNDS. SHE REPORTS GENERALIZED WEAKNESS TODAY. ON EXAMINATION, HEART IS REGULAR IN RATE AND RHYTHM. BILATERAL LUNGS ARE NOTED WITH DIMINSHED LUNG SOUNDS THROUGHOUT. ABDOMEN IS ROUND, SOFT, AND NON-TENDER WITH NORMAL BOWEL SOUNDS NOTED IN ALL QUADRANTS. RIGHT LOWER EXTREMITY CONTINUE WITH ERYTHEMA AND EDEMA. HER VITALS THIS MORNING ARE: 99.0-90-16-96%-198/76. LABS WERE OBTAINED. ABNORMAL LAB VALUES INCLUDE THE FOLLOWING: WBC 10.98, HGB 9.8, HCT 29.8, BUN 6, GLUCOSE 159, ALT 10, ALBUMIN 3.2. WOUND AND BLOOD CULTURES ARE PENDING. PRELIMINARY WOUND CULTURE REPORTS GROWTH OF GRAM POSITIVE COCCI. SHE IS CURRENTLY RECEIVING ZOSYN 3.375G IV TID, NORMAL SALINE AT 125ML/HR, AND HOME MEDS WERE RESUMED. WE WILL INCREASE THE CATAPRES PATCH TO 0.3MG/HR TODAY. WE WILL ALSO START LOVENOX 40MG SC DAILY. OTHERWISE, WE WILL CONTINUE WITH CURRENT PLAN OF CARE TODAY. WE PLAN TO FOLLOW UP WITH AM LABS AND CONTINUE TO MONITOR. - Past Medical Family Social History Past Med/Fam/Surg Hx: No changes since H&P Allergies: Allergies No Known Drug Allergies Allergy (Verified 09/24/16 14:01) - Review of Systems ROS: No change since H&P - Vital Signs and I&O's Vital Signs: Temperature 98.3 F Pulse Rate [Left Brachial] 67 Pulse Rate 104 Respiratory Rate 18 Blood Pressure [Left Arm] 180/79 Blood Pressure [Right Arm] 187/88 Blood Pressure 185/79 O2 Sat by Pulse Oximetry 96 Intake and Output: Intake & Output 08/12/18 08/13/18 08/14/18 08/15/18 11:59 11:59 11:59 11:59 Intake Total 390 / 390 4572 / 4572 2181 / 2181 360 / 360 Balance 390 / 390 4572 / 4572 2181 / 2181 360 / 360 - Physical Exam Oriented: Normal Eyes: Normal Ear: Normal Nose: Normal Throat: Normal Respiratory: Generalized, Diminished Cardiovascular: Tachycardia. negative: S3, S4, Murmur : Normal Auscultation: Bowel Sounds: Normal Palpation: Normal Tenderness: Normal Skin: Red (RIGHT LOWER EXTREMITY ), Tender, Hot Musculoskeletal: Normal Psychiatric: Other (CONFUSION/DISORIENTATION ) Mood Description: Calm Affect: Normal Speech Pattern: Clear, Appropriate - Laboratory and Diagnostics Result Diagrams: 08/14/18 05:08 08/14/18 12:40 Labs: 08/11/18 05:51 Labia - Right Side Gram Stain - Final 08/11/18 05:51 Labia - Right Side Wound Culture - Preliminary 08/11/18 06:00 Blood Blood Culture - Preliminary 08/11/18 05:52 Blood Blood Culture - Preliminary Laboratory WBC 9.6 X10^3/uL (3.6-10.0) 08/14/18 05:08 RBC 3.46 X10^6/uL (3.5-5.4) L 08/14/18 05:08 Hgb 9.1 g/dL (12.0-16.0) L 08/14/18 05:08 Hct 27.5 % (36.0-47.0) L 08/14/18 05:08 MCV 79.3 fL (80.0-100.0) L 08/14/18 05:08 MCH 26.3 pg (27.0-34.0) L 08/14/18 05:08 MCHC 33.1 g/dL (33.0-35.0) 08/14/18 05:08 RDW 16.0 % (11.6-16.5) 08/14/18 05:08 Plt Count 247 X10^3/uL (150.0-450.0) 08/14/18 05:08 Plt Count Comment Adequate (ADEQUATE) 08/13/18 05:19 MPV 8.2 fL (7.4-11.0) 08/14/18 05:08 Neut % (Auto) 64.0 % (42.0-75.0) 08/14/18 05:08 Lymph % (Auto) 25.6 % (21.0-51.0) 08/14/18 05:08 [place] % (Auto) 8.4 % (0.0-13.0) 08/14/18 05:08 Eos % (Auto) 1.4 % (0.9-2.9) 08/14/18 05:08 Baso % (Auto) 0.6 % (0.2-1.0) 08/14/18 05:08 Neut # (Auto) 6.2 x10^3/uL (2.2-4.8) H 08/14/18 05:08 Lymph # (Auto) 2.5 X10^3/uL (1.3-2.9) 08/14/18 05:08 [place] # (Auto) 0.8 x10^3/uL (0.3-0.8) 08/14/18 05:08 Eos # (Auto) 0.1 x10^3/uL (0.0-0.2) 08/14/18 05:08 Baso # (Auto) 0.1 X10^3/uL (0.0-0.1) 08/14/18 05:08 Absolute Nucleated RBC 0.0 /100WBC 08/14/18 05:08 Plt Morphology Comment Normal (NORMAL) 08/13/18 05:19 RBC Morphology Abnormal (NORMAL) A 08/13/18 05:19 Hypochromasia Slight A 08/13/18 05:19 Sodium 141 mmol/L (136-145) 08/14/18 05:08 Corrected Sodium 142 mmol/L (136-145) 08/14/18 05:08 Potassium 3.9 mmol/L (3.5-5.1) 08/14/18 12:40 Chloride 103 mmol/L (98-107) 08/14/18 05:08 Carbon Dioxide 27.6 mmol/L (21-32) 08/14/18 05:08 BUN 4 mg/dL (7-18) L 08/14/18 05:08 Creatinine 0.86 mg/dL (0.55-1.02) 08/14/18 05:08 Est GFR (MDRD) Af Amer > 60 (>60) 08/14/18 05:08 Est GFR (MDRD) Non-Af > 60 (>60) 08/14/18 05:08 Glucose 161 mg/dL (65-99) H 08/14/18 05:08 POC Glucose (mg/dL) 129 mg/dL (65-99) H 08/14/18 20:42 Lactic Acid 3.1 mmol/L (0.4-2.0) H 08/11/18 05:52 Calcium 8.4 mg/dL (8.5-10.1) L 08/14/18 05:08 Corrected Calcium 9.3 mg/dL (8.5-10.1) 08/14/18 05:08 Magnesium 1.7 mg/dL (1.7-2.9) 08/13/18 05:19 Total Bilirubin 0.60 mg/dL (0.2-1.0) 08/14/18 05:08 AST 17 Units/L (15-37) 08/14/18 05:08 ALT 10 Units/L (12-78) L 08/14/18 05:08 Alkaline Phosphatase 63 Units/L (46-116) 08/14/18 05:08 Creatine Kinase 101 Units/L (26-192) 08/11/18 05:52 CK-MB (CK-2) 1.0 ng/mL (0-4.0) 08/11/18 05:52 CK/CKMB % Calc 1.0 % (<4) 08/11/18 05:52 Troponin I < 0.02 ng/mL (0-1.5) 08/11/18 05:52 C-Reactive Protein 147.10 mg/L (0-3.0) H 08/12/18 05:07 Total Protein 7.0 g/dL (6.4-8.2) 08/14/18 05:08 Albumin 2.9 g/dL (3.4-5.0) L 08/14/18 05:08 Globulin 4.1 g/dL (2.5-4.5) 08/14/18 05:08 Albumin/Globulin Ratio 0.7 Ratio (1.1-2.1) L 08/14/18 05:08 Specimen Type Catherized urine 08/11/18 05:51 Urine Color Yellow (YELLOW) 08/11/18 05:51 Urine Appearance Slightly hazy (CLEAR) 08/11/18 05:51 Urine pH 8.0 (5.0 - 8.0) 08/11/18 05:51 Ur Specific [place] 1.010 (1.000-1.030) 08/11/18 05:51 Urine Protein 2+ (NEGATIVE) 08/11/18 05:51 Urine Glucose (UA) Negative (NEGATIVE) 08/11/18 05:51 Urine Ketones Negative (NEGATIVE) 08/11/18 05:51 Urine Occult Blood Negative (NEGATIVE) 08/11/18 05:51 Urine Nitrite Negative (NEGATIVE) 08/11/18 05:51 Urine Bilirubin Negative (NEGATIVE) 08/11/18 05:51 Urine Urobilinogen Normal (NORMAL) 08/11/18 05:51 Ur Leukocyte Esterase Negative (NEGATIVE) 08/11/18 05:51 Urine RBC None seen /HPF (NONE SEEN) 08/11/18 05:51 Urine WBC 0-2 /HPF (NONE SEEN) 08/11/18 05:51 Ur Squamous Epith Cells Rare /HPF (NEGATIVE) 08/11/18 05:51 Urine Bacteria Negative /HPF (NEGATIVE) 08/11/18 05:51 Urine Mucus Few /HPF (NEGATIVE) 08/11/18 05:51 Ur Culture Indicated? No/not indicated 08/11/18 05:51 - Plan (1) Cellulitis of right leg Status: Acute Plan: ZOSYN 3.375G IV TID, CONTINUE TO MONITOR (2) Mental status alteration Status: Acute Qualifiers: Altered mental status type: transient alteration of awareness (3) Generalized weakness Status: Acute (4) Hypokalemia Status: Resolved Plan: POTASSIUM PROTOCOL, CONTINUE TO MONITOR (5) Hypomagnesemia Status: Resolved Plan: MAGNESIUM PROTOCOL, CONTINUE TO MONITOR
[2018-08-15] MEDS: NS 1000 ML 1,000 ML IV SCH ×3 (00:40→06:13)
[2018-08-15] MEDS: ROBITUSSIN DM PO PRN (01:55)
[2018-08-15 06:02] LABS: BASOPHILS # (AUTO) 0.1 X10^3/uL (0.0-0.1); BASOPHILS % (AUTO) 0.6 % (0.2-1.0); EOSINOPHILS # (AUTO) 0.5 x10^3/uL (0.0-0.2); EOSINOPHILS % (AUTO) 4.5 % (0.9-2.9); HEMATOCRIT 29.8 % (36.0-47.0); HEMOGLOBIN 9.8 g/dL (12.0-16.0); LYMPHOCYTES % (AUTO) 19.4 % (21.0-51.0); MEAN CORPUSCULAR HEMOGLOBIN 25.6 pg (27.0-34.0); MEAN CORPUSCULAR HGB CONC 32.9 g/dL (33.0-35.0); MEAN CORPUSCULAR VOLUME 77.9 fL (80.0-100.0); MEAN PLATELET VOLUME 7.9 fL (7.4-11.0); MONOCYTES # (AUTO) 0.9 x10^3/uL (0.3-0.8); NEUTROPHILS # (AUTO) 6.7 x10^3/uL (2.2-4.8); NEUTROPHILS % (AUTO) 66.5 % (42.0-75.0); PLATELET COUNT 280 X10^3/uL (150.0-450.0); RED BLOOD COUNT 3.82 X10^6/uL (3.5-5.4); RED CELL DISTRIBUTION WIDTH 16.5 % (11.6-16.5); WHITE BLOOD COUNT 10.1 X10^3/uL (3.6-10.0)
[2018-08-15] MEDS: ZOSYN VIAL 3.375 GRAMS 3.375 G in NS 100 ML IV + SPIKE MINIBAG* 100 ML IV SCH (06:13)
[2018-08-15 06:15] LABS: ALANINE AMINOTRANSFERASE 14 Units/L (12-78); ALBUMIN 3.3 g/dL (3.4-5.0); ALKALINE PHOSPHATASE 78 Units/L (46-116); ASPARTATE AMINO TRANSFERASE 22 Units/L (15-37); BLOOD UREA NITROGEN 3 mg/dL (7-18); CALCIUM 8.7 mg/dL (8.5-10.1); CARBON DIOXIDE 27.2 mmol/L (21-32); CHLORIDE 102 mmol/L (98-107); COR CA(FOR HYPOALB) 9.3 mg/dL (8.5-10.1); COR NA(FOR HYPERGLY) 142 mmol/L (136-145); CREATININE 0.75 mg/dL (0.55-1.02); SODIUM 140 mmol/L (136-145); eGFR NON BLACK RACES > 60 (>60)
[2018-08-15 06:28] LABS: HYPOCHROMASIA SLIGHT; PLATELET MORPHOLOGY COMMENT NORMAL (NORMAL)
[2018-08-15] MEDS ORDERED: GLUCOPHAGE ONE (08:33)
[2018-08-15] MEDS: LOVENOX INJ 40 MG SYR SC SCH (08:43)
[2018-08-15] MEDS: GLUCOPHAGE PO SCH (08:44)
[2018-08-15] MEDS: ZIAC 5/6.25 MG PO SCH (08:44)
[2018-08-15] MEDS: NORVASC TAB 10 MG PO SCH (08:44)
[2018-08-15] MEDS: PriLOSEC PO SCH (08:45)
[2018-08-15] MEDS: GLUCOTROL PO SCH (08:45)
[2018-08-15] MEDS: ECOTRIN TAB 325 MG PO SCH (08:45)
[2018-08-15] MEDS: ZEBETA TAB 5 MG PO SCH (08:45)
[2018-08-15] MEDS: K-DUR TAB 20 MEQ PO PRN (10:24)
[2018-08-15] MEDS ORDERED: NORVASC TAB 2.5 MG PO ONE (10:56)
[2018-08-15] MEDS ORDERED: NORVASC TAB 2.5 MG PO NR (12:00)
[2018-08-15 12:11] VITALS: BP 176/79
--- NOTE | 2018-08-16 16:30 | PCM.PROG ---
Progress Note - Progress Note for Day of Date of Exam: 08/14/18 - Subjective Subjective: WAS ADMITTED FOR RLE CELLULITIS, AMS, AND FEVER. TODAY, SHE IS ALERT AND ORIENTED, SITTING UP IN BED ON MORNING ROUNDS. SHE REPORTS GENERALIZED WEAKNESS TODAY. ON EXAMINATION, HEART IS REGULAR IN RATE AND RHYTHM. BILATERAL LUNGS ARE NOTED WITH DIMINSHED LUNG SOUNDS THROUGHOUT. ABDOMEN IS ROUND, SOFT, AND NON-TENDER WITH NORMAL BOWEL SOUNDS NOTED IN ALL QUADRANTS. RIGHT LOWER EXTREMITY CONTINUE WITH ERYTHEMA AND EDEMA. HER VITALS THIS MORNING ARE: 98.0-84-18-94%-160/74. LABS WERE OBTAINED. ABNORMAL LAB VALUES INCLUDE THE FOLLOWING: RBC 3.46, HGB 9.1, HCT 27.5, POTASSIUM 3.0, BUN 4, GLUCOSE 161, CALCIUM 8.4, ALT 10, ALBUMIN 2.9. WOUND AND BLOOD CULTURES ARE PENDING. PRELIMINARY WOUND CULTURE REPORTS GROWTH OF GRAM POSITIVE COCCI. SHE IS CURRENTLY RECEIVING ZOSYN 3.375G IV TID, NORMAL SALINE AT 125ML/HR, AND HOME MEDS WERE RESUMED. WE WILL REPLACE HER POTASSIUM TODAY PER THE PROTOCOL. OTHERWISE, WE WILL CONTINUE WITH CURRENT PLAN OF CARE TODAY. WE PLAN TO FOLLOW UP WITH AM LABS AND CONTINUE TO MONITOR. - Past Medical Family Social History Past Med/Fam/Surg Hx: No changes since H&P Allergies: Allergies No Known Drug Allergies Allergy (Verified 09/24/16 14:01) - Review of Systems ROS: No change since H&P - Vital Signs and I&O's Vital Signs: Temperature 98.1 F Pulse Rate [Left Brachial] 76 Pulse Rate 104 Respiratory Rate 18 Blood Pressure [Left Arm] 176/79 Blood Pressure [Right Arm] 187/88 Blood Pressure 185/79 O2 Sat by Pulse Oximetry 98 Intake and Output: Intake & Output 08/14/18 08/15/18 08/16/18 08/17/18 11:59 11:59 11:59 11:59 Intake Total 218 / 2181 1410 / 1410 Balance 218 / 2180 1410 / 1410 - Physical Exam Oriented: Normal Eyes: Normal Ear: Normal Nose: Normal Throat: Normal Respiratory: Generalized, Diminished Cardiovascular: Tachycardia. negative: S3, S4, Murmur : Normal Auscultation: Bowel Sounds: Normal Palpation: Normal Tenderness: Normal Skin: Red (RIGHT LOWER EXTREMITY ), Tender, Hot Musculoskeletal: Normal Psychiatric: Other (CONFUSION/DISORIENTATION ) Mood Description: Calm Affect: Normal Speech Pattern: Clear, Appropriate - Laboratory and Diagnostics Result Diagrams: 08/15/18 05:18 08/15/18 05:18 Labs: 08/11/18 06:00 Blood Blood Culture - Final 08/11/18 05:52 Blood Blood Culture - Final 08/11/18 05:51 Labia - Right Side Gram Stain - Final 08/11/18 05:51 Labia - Right Side Wound Culture - Final Streptococcus Dysgalactiae Laboratory WBC 10.1 X10^3/uL (3.6-10.0) H 08/15/18 05:18 RBC 3.82 X10^6/uL (3.5-5.4) 08/15/18 05:18 Hgb 9.8 g/dL (12.0-16.0) L 08/15/18 05:18 Hct 29.8 % (36.0-47.0) L 08/15/18 05:18 MCV 77.9 fL (80.0-100.0) L 08/15/18 05:18 MCH 25.6 pg (27.0-34.0) L 08/15/18 05:18 MCHC 32.9 g/dL (33.0-35.0) L 08/15/18 05:18 RDW 16.5 % (11.6-16.5) 08/15/18 05:18 Plt Count 280 X10^3/uL (150.0-450.0) 08/15/18 05:18 Plt Count Comment Adequate (ADEQUATE) 08/15/18 05:18 MPV 7.9 fL (7.4-11.0) 08/15/18 05:18 Neut % (Auto) 66.5 % (42.0-75.0) 08/15/18 05:18 Lymph % (Auto) 19.4 % (21.0-51.0) L 08/15/18 05:18 [place] % (Auto) 9.0 % (0.0-13.0) 08/15/18 05:18 Eos % (Auto) 4.5 % (0.9-2.9) H 08/15/18 05:18 Baso % (Auto) 0.6 % (0.2-1.0) 08/15/18 05:18 Neut # (Auto) 6.7 x10^3/uL (2.2-4.8) H 08/15/18 05:18 Lymph # (Auto) 2.0 X10^3/uL (1.3-2.9) 08/15/18 05:18 [place] # (Auto) 0.9 x10^3/uL (0.3-0.8) H 08/15/18 05:18 Eos # (Auto) 0.5 x10^3/uL (0.0-0.2) H 08/15/18 05:18 Baso # (Auto) 0.1 X10^3/uL (0.0-0.1) 08/15/18 05:18 Absolute Nucleated RBC 0.0 /100WBC 08/15/18 05:18 Plt Morphology Comment Normal (NORMAL) 08/15/18 05:18 RBC Morphology Abnormal (NORMAL) A 08/15/18 05:18 Hypochromasia Slight A 08/15/18 05:18 Sodium 140 mmol/L (136-145) 08/15/18 05:18 Corrected Sodium 142 mmol/L (136-145) 08/15/18 05:18 Potassium 3.4 mmol/L (3.5-5.1) L 08/15/18 05:18 Chloride 102 mmol/L (98-107) 08/15/18 05:18 Carbon Dioxide 27.2 mmol/L (21-32) 08/15/18 05:18 BUN 3 mg/dL (7-18) L 08/15/18 05:18 Creatinine 0.75 mg/dL (0.55-1.02) 08/15/18 05:18 Est GFR (MDRD) Af Amer > 60 (>60) 08/15/18 05:18 Est GFR (MDRD) Non-Af > 60 (>60) 08/15/18 05:18 Glucose 174 mg/dL (65-99) H 08/15/18 05:18 POC Glucose (mg/dL) 141 mg/dL (65-99) H 08/15/18 11:14 Lactic Acid 3.1 mmol/L (0.4-2.0) H 08/11/18 05:52 Calcium 8.7 mg/dL (8.5-10.1) 08/15/18 05:18 Corrected Calcium 9.3 mg/dL (8.5-10.1) 08/15/18 05:18 Magnesium 1.7 mg/dL (1.7-2.9) 08/13/18 05:19 Total Bilirubin 0.60 mg/dL (0.2-1.0) 08/15/18 05:18 AST 22 Units/L (15-37) 08/15/18 05:18 ALT 14 Units/L (12-78) 08/15/18 05:18 Alkaline Phosphatase 78 Units/L (46-116) 08/15/18 05:18 Creatine Kinase 101 Units/L (26-192) 08/11/18 05:52 CK-MB (CK-2) 1.0 ng/mL (0-4.0) 08/11/18 05:52 CK/CKMB % Calc 1.0 % (<4) 08/11/18 05:52 Troponin I < 0.02 ng/mL (0-1.5) 08/11/18 05:52 C-Reactive Protein 147.10 mg/L (0-3.0) H 08/12/18 05:07 Total Protein 8.0 g/dL (6.4-8.2) 08/15/18 05:18 Albumin 3.3 g/dL (3.4-5.0) L 08/15/18 05:18 Globulin 4.7 g/dL (2.5-4.5) H 08/15/18 05:18 Albumin/Globulin Ratio 0.7 Ratio (1.1-2.1) L 08/15/18 05:18 Specimen Type Catherized urine 08/11/18 05:51 Urine Color Yellow (YELLOW) 08/11/18 05:51 Urine Appearance Slightly hazy (CLEAR) 08/11/18 05:51 Urine pH 8.0 (5.0 - 8.0) 08/11/18 05:51 Ur Specific [place] 1.010 (1.000-1.030) 08/11/18 05:51 Urine Protein 2+ (NEGATIVE) 08/11/18 05:51 Urine Glucose (UA) Negative (NEGATIVE) 08/11/18 05:51 Urine Ketones Negative (NEGATIVE) 08/11/18 05:51 Urine Occult Blood Negative (NEGATIVE) 08/11/18 05:51 Urine Nitrite Negative (NEGATIVE) 08/11/18 05:51 Urine Bilirubin Negative (NEGATIVE) 08/11/18 05:51 Urine Urobilinogen Normal (NORMAL) 08/11/18 05:51 Ur Leukocyte Esterase Negative (NEGATIVE) 08/11/18 05:51 Urine RBC None seen /HPF (NONE SEEN) 08/11/18 05:51 Urine WBC 0-2 /HPF (NONE SEEN) 08/11/18 05:51 Ur Squamous Epith Cells Rare /HPF (NEGATIVE) 08/11/18 05:51 Urine Bacteria Negative /HPF (NEGATIVE) 08/11/18 05:51 Urine Mucus Few /HPF (NEGATIVE) 08/11/18 05:51 Ur Culture Indicated? No/not indicated 08/11/18 05:51 - Plan (1) Cellulitis of right leg Status: Acute Plan: ZOSYN 3.375G IV TID, CONTINUE TO MONITOR (2) Mental status alteration Status: Acute Qualifiers: Altered mental status type: transient alteration of awareness (3) Generalized weakness Status: Acute (4) Hypokalemia Status: Resolved Plan: POTASSIUM PROTOCOL, CONTINUE TO MONITOR (5) Hypomagnesemia Status: Resolved Plan: MAGNESIUM PROTOCOL, CONTINUE TO MONITOR
== END 2018-08-15 14:35 | disposition home or self-care (01) | DRG 603 ==
LOC: MED/SURG 05:08 → ER 05:08 → OBSVTOIN 08:11 → MED/SURG 14:24
PROVIDERS: ADMIT Internal Medicine; ATTEND Internal Medicine
DX: R79.82 Elevated C-reactive protein (CRP); I11.9 Hypertensive heart disease without heart failure; I25.10 Atherosclerotic heart disease of native coronary artery without angina pectoris; E78.2 Mixed hyperlipidemia; R26.89 Other abnormalities of gait and mobility; R53.1 Weakness; K21.9 Gastro-esophageal reflux disease without esophagitis; D72.828 Other elevated white blood cell count; K44.9 Diaphragmatic hernia without obstruction or gangrene; E87.6 Hypokalemia; B95.1 Streptococcus, group B, as the cause of diseases classified elsewhere; L03.115 Cellulitis of right lower limb; R40.4 Transient alteration of awareness
CPT/HCPCS: 36415; 51701; 70450; 71010; 71045; 80053; 81001; 82550; 82553; 83605; 83735; 84132; 84484; 85025; 86140; 87040; 87070; 87075; 87077; 87186; 87205; 93005; 94760; 96365; 96367; 96374; 96375; 97116; 97161; 97165; 97530; 99284; A4222; J0131; J1650; J2405; J2543; J3475; J7030; J7050

== ENCOUNTER 2020-03-06 18:56 | Observation (INO) ==
--- NOTE | 2020-03-06 22:44 | DR.EXTPAIN ---
HPI Time seen Time Seen by Provider: 03/06/20 22:29 PCP Primary Care Physician: Complaint/Symptoms Chief Complaint:: FELL WHILE PUTTING ON SHOES AND HIT BACK OF HEAD. COVID-19 Coronavirus risk:travel/contact w/high risk person: No Has patient experienced Coronavirus symptoms: No Source History Provided: Patient Mode of arrival Mode of Arrival: Ambulatory Timing Onset of Chief Complaint: 03/06/20 PMH PMH Past Medical History: Yes Past Medical History: CVA, Diabetes and Hypertension Past Surgical History: Yes Surgical History: Unknown Past Surgical History Comment: CYST REMOVED FROM RIGHT BREAST Family History History of Family Medical Conditions: Yes Family Medical History: Diabetes Mellitus and Hypertension Social History Type of Tobacco Use: None Alcohol Use: None Do you use any recreational Drugs:: No Lives With: Family Lives Where: Home Travel Risk Coronavirus risk:travel/contact w/high risk person: No Has patient experienced Coronavirus symptoms: No Infectious screening In the last 2 months have you had wt loss of >10#?: NO Have you had fever, night sweats or hemotysis?: No Have you traveled outside the country in the last 6 months?: No Isolation: Standard PE Vital Signs Vitals: Temperature 98.9 F Pulse Rate 85 Respiratory Rate 20 Blood Pressure [Left Arm] 176/79 Blood Pressure [Right Arm] 187/88 Blood Pressure 198/95 O2 Sat by Pulse Oximetry 97 ROR Labs Reviewed Result Diagrams: 03/06/20 23:49 03/06/20 23:49 Laboratory: WBC 10.8 X10^3/uL (3.6-10.0) H 03/06/20 23:49 RBC 3.60 X10^6/uL (3.5-5.4) 03/06/20 23:49 Hgb 11.3 g/dL (12.0-16.0) L 03/06/20 23:49 Hct 33.3 % (36.0-47.0) L 03/06/20 23:49 MCV 92.4 fL (80.0-100.0) 03/06/20 23:49 MCH 31.4 pg (27.0-34.0) 03/06/20 23:49 MCHC 34.0 g/dL (33.0-35.0) 03/06/20 23:49 RDW 14.1 % (11.6-16.5) 03/06/20 23:49 Plt Count 241 X10^3/uL (150.0-450.0) 03/06/20 23:49 MPV 8.5 fL (7.4-11.0) 03/06/20 23:49 Neut % (Auto) 75.7 % (42.0-75.0) H 03/06/20 23:49 Lymph % (Auto) 16.3 % (21.0-51.0) L 03/06/20 23:49 [place] % (Auto) 7.2 % (0.0-13.0) 03/06/20 23:49 Eos % (Auto) 0.4 % (0.9-2.9) L 03/06/20 23:49 Baso % (Auto) 0.4 % (0.2-1.0) 03/06/20 23:49 Neut # (Auto) 8.2 x10^3/uL (2.2-4.8) H 03/06/20 23:49 Lymph # (Auto) 1.8 X10^3/uL (1.3-2.9) 03/06/20 23:49 [place] # (Auto) 0.8 x10^3/uL (0.3-0.8) 03/06/20 23:49 Eos # (Auto) 0.0 x10^3/uL (0.0-0.2) 03/06/20 23:49 Baso # (Auto) 0.0 X10^3/uL (0.0-0.1) 03/06/20 23:49 Absolute Nucleated RBC 0.0 /100WBC 03/06/20 23:49 Sodium 136 mmol/L (136-145) 03/06/20 23:49 Corrected Sodium 140 mmol/L (136-145) 03/06/20 23:49 Potassium 3.8 mmol/L (3.5-5.1) 03/06/20 23:49 Chloride 98 mmol/L (98-107) 03/06/20 23:49 Carbon Dioxide 30.9 mmol/L (21-32) 03/06/20 23:49 BUN 10 mg/dL (7-18) 03/06/20 23:49 Creatinine 0.90 mg/dL (0.55-1.02) 03/06/20 23:49 Est GFR (MDRD) Af Amer > 60 (>60) 03/06/20 23:49 Est GFR (MDRD) Non-Af > 60 (>60) 03/06/20 23:49 Glucose 251 mg/dL (65-99) H 03/06/20 23:49 Calcium 9.2 mg/dL (8.5-10.1) 03/06/20 23:49 Corrected Calcium TNP 03/06/20 23:49 Total Bilirubin 0.60 mg/dL (0.2-1.0) 03/06/20 23:49 AST 22 Units/L (15-37) 03/06/20 23:49 ALT 19 Units/L (12-78) 03/06/20 23:49 Alkaline Phosphatase 55 Units/L (46-116) 03/06/20 23:49 Creatine Kinase 141 Units/L (26-192) 03/07/20 01:38 CK-MB (CK-2) 3.7 ng/mL (0-4.0) 03/07/20 01:38 CK/CKMB % Calc 2.6 % (<4) 03/07/20 01:38 Troponin I 0.48 ng/mL (0-1.5) 03/07/20 01:38 Total Protein 6.8 g/dL (6.4-8.2) 03/06/20 23:49 Albumin 3.5 g/dL (3.4-5.0) 03/06/20 23:49 Globulin 3.3 g/dL (2.5-4.5) 03/06/20 23:49 Albumin/Globulin Ratio 1.1 Ratio (1.1-2.1) 03/06/20 23:49 Specimen Type Clean catch urine 03/07/20 03:28 Urine Color Yellow (YELLOW) 03/07/20 03:28 Urine Appearance Clear (CLEAR) 03/07/20 03:28 Urine pH 7.0 (5.0 - 8.0) 03/07/20 03:28 Ur Specific [place] 1.010 (1.000-1.030) 03/07/20 03:28 Urine Protein 1+ (NEGATIVE) 03/07/20 03:28 Urine Glucose (UA) Negative (NEGATIVE) 03/07/20 03:28 Urine Ketones 1+ (NEGATIVE) 03/07/20 03:28 Urine Occult Blood Negative (NEGATIVE) 03/07/20 03:28 Urine Nitrite Negative (NEGATIVE) 03/07/20 03:28 Urine Bilirubin Negative (NEGATIVE) 03/07/20 03:28 Urine Urobilinogen Normal (NORMAL) 03/07/20 03:28 Ur Leukocyte Esterase Negative (NEGATIVE) 03/07/20 03:28 Urine RBC None seen /HPF (0-3) 03/07/20 03:28 Urine WBC None seen /HPF (0-5) 03/07/20 03:28 Ur Squamous Epith Cells Negative /HPF (NEGATIVE) 03/07/20 03:28 Urine Bacteria Negative /HPF (NEGATIVE) 03/07/20 03:28 Ur Culture Indicated? No/not indicated 03/07/20 03:28 SARS CoV-2 RNA Rapid ELSY Negative (NEGATIVE) 03/07/20 04:50 Opioid Opioid Risk Tool Age ([place] box if 16-45): No History of Preadolescent Sexual Abuse: No Total: 0 Total Score Risk Category: Low Risk Copyright: [employer] AGUILAR predicting aberrant behaviors
--- NOTE | 2020-03-07 00:05 | CT ---
STUDY: CT HEAD WITHOUT IV CONTRASTCOMPARISON: NoneTECHNIQUE: axial images were acquired of the head without IV contrast. Coronal and sagittal images were provided. All images were reviewed in a variety of windows and levels.LIMITATIONS: Please note that CT has low sensitivity and accuracy for identifying acute infarction. In addition, there are portions of the brain that are affected by beam hardening artifact which further greatly limits identification of an acute infarct.RADIATION REDUCTION TECHNIQUE: Automated exposure control, Adjustment of the mA and/or kV according to patient size, or iterative reconstruction techniques were used.HISTORY: PT FELL AND COMPLAINS OF HEAD, NECK, AND PELVIC PAINFINDINGS:There is diffuse cerebral atrophy with a regional distribution of low attenuation along the periventricular white matter most likely representing small vessel ischemic changes which are to a degree that would be considered within normal limits for the patient's stated age.There is no evidence of an acute intracranial bleed.There is no evidence of a mass or midline shift.There is no evidence of an extra-axial fluid collection.The ortega-white matter differentiation is within normal limits.The visualized bones are unremarkable.The visualized sinuses are clear.The mastoid air cells are well-aerated.IMPRESSION:1. INVOLUTIONAL CHANGES ARE PRESENT WITH FINDINGS SUGGESTING SMALL VESSEL ISCHEMIC DISEASE WHICH IS TO A DEGREE THAT WOULD BE CONSIDERED WITHIN NORMAL LIMITS FOR THE PATIENT'S STATED AGE.2. THERE IS NO EVIDENCE OF ACUTE INTRACRANIAL BLEED.Electronically signed by: Pedro Serrano (Mar 07, 2020 00:03:13)
--- NOTE | 2020-03-07 00:06 | CT ---
STUDY: CT CERVICAL SPINE WITHOUT IV CONTRASTCOMPARISON: NoneTECHNIQUE: Axial images were acquired through the cervical spine without IV contrast. sagittal and coronal reformatted images were provided. All images reviewed in a variety of windows and levels.RADIATION REDUCTION TECHNIQUE: Automated exposure control, Adjustment of the mA and/or kV according to patient size, or iterative reconstruction techniques were used.HISTORY: PT FELL AND COMPLAINS OF HEAD, NECK, AND PELVIC PAINFINDINGS:Please note that lack of IV contrast limits evaluation of soft tissue structures and vascular detail.There is no evidence of an acute osseous fracture or subluxation.The skull base is intact.Mastoid air cells are well-aerated.The visualized portions of the paraspinous muscles are unremarkable.There are no abnormal areas of increased attenuation within the spinal canal to suggest an epidural hematoma.The visualized lung apices are clear.There are no obvious abnormal masses seen within the visualized soft tissues of the neck.Severe multilevel degenerative changes are notedIMPRESSION:THERE IS NO EVIDENCE OF ACUTE FRACTURE OR SUBLUXATIONElectronically signed by: Pedro Serrano (Mar 07, 2020 00:04:15)
[2020-03-07 00:22] LABS: BASOPHILS % (AUTO) 0.4 % (0.2-1.0); EOSINOPHILS % (AUTO) 0.4 % (0.9-2.9); HEMATOCRIT 33.3 % (36.0-47.0); HEMOGLOBIN 11.3 g/dL (12.0-16.0); LYMPHOCYTES # (AUTO) 1.8 X10^3/uL (1.3-2.9); LYMPHOCYTES % (AUTO) 16.3 % (21.0-51.0); MEAN CORPUSCULAR HEMOGLOBIN 31.4 pg (27.0-34.0); MEAN CORPUSCULAR VOLUME 92.4 fL (80.0-100.0); MEAN PLATELET VOLUME 8.5 fL (7.4-11.0); MONOCYTES # (AUTO) 0.8 x10^3/uL (0.3-0.8); MONOCYTES % (AUTO) 7.2 % (0.0-13.0); NEUTROPHILS # (AUTO) 8.2 x10^3/uL (2.2-4.8); NEUTROPHILS % (AUTO) 75.7 % (42.0-75.0); PLATELET COUNT 241 X10^3/uL (150.0-450.0); RED CELL DISTRIBUTION WIDTH 14.1 % (11.6-16.5); WHITE BLOOD COUNT 10.8 X10^3/uL (3.6-10.0)
[2020-03-07 00:23] LABS: BLOOD UREA NITROGEN 10 mg/dL (7-18); CALCIUM 9.2 mg/dL (8.5-10.1); CARBON DIOXIDE 30.9 mmol/L (21-32); CHLORIDE 98 mmol/L (98-107); COR NA(FOR HYPERGLY) 140 mmol/L (136-145); SODIUM 136 mmol/L (136-145); eGFR NON BLACK RACES > 60 (>60)
[2020-03-07 00:27] LABS: ALANINE AMINOTRANSFERASE 19 Units/L (12-78); ALBUMIN 3.5 g/dL (3.4-5.0); ALKALINE PHOSPHATASE 55 Units/L (46-116); ASPARTATE AMINO TRANSFERASE 22 Units/L (15-37); CKMB % 2.6 % (<4); CREATINE KINASE 138 Units/L (26-192); CREATINE KINASE MB 3.6 ng/mL (0-4.0); TOTAL PROTEIN 6.8 g/dL (6.4-8.2)
[2020-03-07 02:07] LABS: CKMB % 2.6 % (<4); CREATINE KINASE MB 3.7 ng/mL (0-4.0); TROPONIN I 0.48 ng/mL (0-1.5)
[2020-03-07 03:40] LABS: BILIRUBIN,URINE NEGATIVE (NEGATIVE); BLOOD/HEMOGLOBIN,URINE NEGATIVE (NEGATIVE); GLUCOSE, URINE NEGATIVE (NEGATIVE); KETONES,URINE 1+ (NEGATIVE); LEUKOCYTE ESTERASE ,URINE NEGATIVE (NEGATIVE); NITRITES,URINE NEGATIVE (NEGATIVE); PROTEIN,URINE 1+ (NEGATIVE); UROBILINOGEN,URINE NORMAL (NORMAL)
[2020-03-07 03:47] LABS: APPEARANCE,URINE CLEAR (CLEAR); COLOR,URINE YELLOW (YELLOW)
[2020-03-07 03:48] LABS: BACTERIA,URINE NEGATIVE /HPF (NEGATIVE); RBC,URINE NONE SEEN /HPF (0-3); SQUAMOUS EPITHELIAL CELL,UR NEGATIVE /HPF (NEGATIVE)
--- NOTE | 2020-03-07 05:14 | RAD ---
STUDY: PELVISCOMPARISON: NoneHISTORY: PT FELL AND COMPLAINS OF HEAD, NECK, AND PELVIC PAINFINDINGS:There is no evidence of fracture or joint dislocation.There is no evidence of an embedded radiopaque foreign body.IMPRESSION:There is no evidence of fracture or joint dislocation.Electronically signed by: Pedro Serrano (Mar 07, 2020 05:13:11)
[2020-03-07] MEDS: NS 1000 ML 1,000 ML IV SCH ×2 (06:09→18:53)
[2020-03-07 06:56] VITALS: BMI 25.8
[2020-03-07 07:08] LABS: CKMB % 3.1 % (<4); TROPONIN I 0.52 ng/mL (0-1.5)
[2020-03-07 07:18] LABS: CREATINE KINASE MB 4.9 ng/mL (0-4.0)
[2020-03-07] MEDS ORDERED: CATAPRES TAB 0.2 MG PO SCH (09:00)
[2020-03-07] MEDS: NEURONTIN CAP 100 MG PO SCH ×4 (11:03→21:02)
[2020-03-07] MEDS: HYDROCHLOROTHIAZIDE 25 MG TAB PO SCH (11:04)
[2020-03-07] MEDS: ZEBETA TAB 5 MG PO SCH (11:04)
[2020-03-07] MEDS: GLUCOTROL PO SCH ×2 (11:04→20:09)
[2020-03-07] MEDS: PEPCID TAB 20 MG PO SCH (11:05)
[2020-03-07 12:32] LABS: CKMB % 2.6 % (<4); TROPONIN I 0.4 ng/mL (0-1.5)
[2020-03-07 12:35] LABS: CREATINE KINASE MB 4.2 ng/mL (0-4.0)
[2020-03-07] MEDS: HumuLIN R SUBCUT PRN ×2 (12:41→17:36)
[2020-03-07 13:24] LABS: BILIRUBIN,URINE NEGATIVE (NEGATIVE); BLOOD/HEMOGLOBIN,URINE NEGATIVE (NEGATIVE); GLUCOSE, URINE 3+ (NEGATIVE); KETONES,URINE NEGATIVE (NEGATIVE); LEUKOCYTE ESTERASE ,URINE NEGATIVE (NEGATIVE); NITRITES,URINE NEGATIVE (NEGATIVE); PROTEIN,URINE NEGATIVE (NEGATIVE); UROBILINOGEN,URINE NORMAL (NORMAL)
[2020-03-07 13:27] LABS: APPEARANCE,URINE CLEAR (CLEAR); COLOR,URINE YELLOW (YELLOW)
[2020-03-07] MEDS ORDERED: SNACK - Diabetic Appropriate PO SCH ×2 (20:00)
[2020-03-07] MEDS ORDERED: CRESTOR TAB 10 MG PO SCH (21:00)
--- NOTE | 2020-03-07 22:35 | DR.H&P ---
H&P - History & Physical for Day of: H&P Date: 03/07/20 - Chief Complaint Chief Complaint: FALL, NECK PAIN, HEADACHE, PELVIC PAIN - History of Present Illness History of Present Illness: IS A 74 YEAR OLD PATIENT OF OURS. SHE PRESENTED TO THE ER ON 03/06/20 WITH COMPLAINTS OF FALLING AT HOME. SHE REPORTED HITTING THE BACK OF HER HEAD WHEN SHE FELL. SHE DENIES LOSS OF CONSCIOUSNESS. SHE COMPLAINS OF HEADACHE, NECK PAIN, AND PELVIC PAIN. HER PMH INCLUDES CVA, DIABETES, AND HYPERTENSION. EXAMINATION REVEALED BRUISING TO THE SACRAL AREA AND A TENDERNESS TO THE BACK OF HEAD. ON ARRIVAL TO THE ER, VITALS WERE 98.9-100-22-99% [id number]. LABS WERE OBTAINED. ABNORMAL LAB VALUES INCLUDE THE FOLLOWING: WBC 10.8, HGB 11.3, HCT 33.3, GLUCOSE 251. TROPONIN WAS NOTED TO BE SLIGHTLY ELEVATED, HOWEVER, IT WAS WITHIN NORMAL RANGE. URINALYSIS WAS UNREMARKABLE. COVID-[address] WAS OBTAINED AND REVEALED: 1. INVOLUTIONAL CHANGES ARE PRESENT WITH FINDINGS SUGGESTING SMALL VESSEL ISCHEMIC DISEASE WHICH IS TO A DEGREE THAT WOULD BE CONSIDERED WITHIN NORMAL LIMITS FOR THE PATIENT'S STATED AGE. 2. THERE IS NO EVIDENCE OF ACUTE INTRACRANIAL BLEED. A PELVIS XRAY WAS OBTAINED AND REVEALED: There is no evidence of fracture or joint dislocation. A CERVICAL SPINE CT WITHOUT CONTRAST WAS OBTAINED AND REVEALED: THERE IS NO EVIDENCE OF ACUTE FRACTURE OR SUBLUXATION. EKG REVEALED SINUS RHYTHM WITH HR 85. CARDIAC ENZYMES WERE REPEATED AT 01:38 ON 03/07/20. HER TROPONIN INCREASED FROM 0.40 TO 0.48. NO SIGNIFICANT CHANGES NOTED TO EKG. AT 05:54, TROPONIN INCREASED TO 0.52. SHE WAS ADMITTED TO THE HOSPITAL FOR FURTHER EVALUATION AND TREATMENT OF FALLS, SCALP CONTUSION, AND ABNORMAL CARDIAC ENZYMES. SHE WAS STARTED ON NS AT KVO, HUMULIN R SLIDING SCALE, CRESTOR 20MG PO HS, HCTZ 6.25MG PO DAILY, GLIPIZIDE 10MG PO BID, NEURONTIN 100MG PO TID, PEPCID 40MG PO DAILY, AND ZEBETA 10MG PO DAILY. HER BLOOD PRESSURE DID DECREASE TO 175/79. WE WILL OBTAIN ANOTHER SET OF CARDIAC ENZYMES AND EKGS. OTHERWISE, WE PLAN TO FOLLOW UP WITH AM LABS AND CONTINUE TO MONITOR. - Past Medical History Past Medical History: Hypertension, Diabetes, CVA Additional Medical History: Bronchitis, Urinary Tract Infections, Muscle Weakness - Past Surgical History Surgical History: Other - Family History Family Medical History: Diabetes Mellitus, Hypertension - Social History Type of Tobacco Use: None Alcohol Use: None Drug Use: None - Medications Home Medications: No Known Drug Allergies Allergy (Verified 09/24/16 14:01) CONTINUE taking the following medications bisoprolol-hydrochlorothiazide 1 tab PO DAILY 03/07/20 [History] famotidine 40 mg PO DAILY 03/07/20 [History] gabapentin 100 mg PO TID 03/07/20 [History] glipizide 10 mg PO BID 03/07/20 [History] losartan 100 mg PO HS 03/07/20 [History] rosuvastatin 20 mg PO HS 03/07/20 [History] - Review of Systems Constitutional: Weakness Eyes: No Symptoms Reported ENT: No Symptoms Reported Respiratory: No Symptoms Reported Cardiovascular: Light Headedness Gastrointestinal: No Symptoms Reported Genitourinary: No Symptoms Reported Musculoskeletal: See HPI, Foot Pain (PELVIS PAIN ), Neck Pain, Other Skin: No Symptoms Reported Neurological: Weakness - Physical Exam Vital Signs: Temperature 98.4 F Pulse Rate [Right Brachial] 61 Pulse Rate 85 Respiratory Rate 18 Blood Pressure [Left Arm] 176/79 Blood Pressure [Right Arm] 143/63 Blood Pressure 198/95 O2 Sat by Pulse Oximetry 96 Oriented: Normal Eyes: Normal Ear: Normal Nose: Normal Throat: Normal Respiratory: Diminished Throughout Cardiovascular: Normal : Normal Auscultation: Bowel Sounds: Normal Palpation: Normal Tenderness: Normal Skin: Normal Musculoskeletal: Pelvis, Tender Psychiatric: Normal Mood Description: Calm Affect: Normal Speech Pattern: Clear - Assessment/Plan (1) Contusion of scalp Qualifiers: Encounter type: initial encounter Qualified Code(s): S00.03XA - Contusion of scalp, initial encounter Status: Acute Plan: ADMIT, NS AT KVO, HUMULIN R SLIDING SCALE, CRESTOR 20MG PO HS, HCTZ 6.25MG PO DAILY, GLIPIZIDE 10MG PO BID, NEURONTIN 100MG PO TID, PEPCID 40MG PO DAILY, AND ZEBETA 10MG PO DAILY. (2) Abnormal cardiac enzyme level Status: Acute (3) Fall at home Status: Acute - Allergies Allergies/Adverse Reactions: Allergies Allergy/AdvReac Type Severity Reaction Status Date / Time No Known Drug Allergies Allergy Verified 09/24/16 14:01
[2020-03-08] MEDS: NEURONTIN CAP 100 MG PO SCH (05:40)
[2020-03-08] MEDS: HumuLIN R SUBCUT PRN ×2 (05:41→11:25)
[2020-03-08 06:07] LABS: BASOPHILS # (AUTO) 0.1 X10^3/uL (0.0-0.1); BASOPHILS % (AUTO) 1.2 % (0.2-1.0); EOSINOPHILS # (AUTO) 0.2 x10^3/uL (0.0-0.2); EOSINOPHILS % (AUTO) 2.4 % (0.9-2.9); HEMATOCRIT 32.9 % (36.0-47.0); HEMOGLOBIN 11.2 g/dL (12.0-16.0); LYMPHOCYTES # (AUTO) 3.4 X10^3/uL (1.3-2.9); LYMPHOCYTES % (AUTO) 38.3 % (21.0-51.0); MEAN CORPUSCULAR HEMOGLOBIN 31.6 pg (27.0-34.0); MEAN CORPUSCULAR HGB CONC 34.1 g/dL (33.0-35.0); MEAN CORPUSCULAR VOLUME 92.8 fL (80.0-100.0); MEAN PLATELET VOLUME 9.1 fL (7.4-11.0); MONOCYTES # (AUTO) 0.9 x10^3/uL (0.3-0.8); NEUTROPHILS # (AUTO) 4.3 x10^3/uL (2.2-4.8); NEUTROPHILS % (AUTO) 48.1 % (42.0-75.0); PLATELET COUNT 243 X10^3/uL (150.0-450.0); RED BLOOD COUNT 3.55 X10^6/uL (3.5-5.4); RED CELL DISTRIBUTION WIDTH 14.2 % (11.6-16.5); WHITE BLOOD COUNT 8.9 X10^3/uL (3.6-10.0)
[2020-03-08 06:58] LABS: ALANINE AMINOTRANSFERASE 22 Units/L (12-78); ALBUMIN 3.4 g/dL (3.4-5.0); ALKALINE PHOSPHATASE 47 Units/L (46-116); ASPARTATE AMINO TRANSFERASE 22 Units/L (15-37); BLOOD UREA NITROGEN 8 mg/dL (7-18); CARBON DIOXIDE 30.7 mmol/L (21-32); CHLORIDE 101 mmol/L (98-107); CKMB % 1.5 % (<4); COR NA(FOR HYPERGLY) 142 mmol/L (136-145); CREATINE KINASE 158 Units/L (26-192); CREATINE KINASE MB 2.4 ng/mL (0-4.0); CREATININE 0.84 mg/dL (0.55-1.02); MAGNESIUM 1.6 mg/dL (1.7-2.9); SODIUM 139 mmol/L (136-145); TOTAL PROTEIN 6.9 g/dL (6.4-8.2); eGFR NON BLACK RACES > 60 (>60)
[2020-03-08] MEDS: NS 1000 ML 1,000 ML IV SCH (08:37)
[2020-03-08] MEDS: ZEBETA TAB 5 MG PO SCH (08:38)
[2020-03-08] MEDS: PEPCID TAB 20 MG PO SCH (08:38)
[2020-03-08] MEDS: HYDROCHLOROTHIAZIDE 25 MG TAB PO SCH (08:42)
[2020-03-08] MEDS: GLUCOTROL PO SCH (08:43)
[2020-03-08] MEDS ORDERED: MILK OF MAGNESIA PO SCH (09:00)
[2020-03-08 12:14] VITALS: BP 168/74
[2020-03-08] MEDS ORDERED: COLACE CAP 100 MG PO SCH (21:00)
== END 2020-03-08 13:15 | disposition home health service (06) ==
LOC: ER 19:06 → MED/SURG 19:06
PROVIDERS: ADMIT Family Medicine; ATTEND Internal Medicine
DX: Z20.828 Contact with and (suspected) exposure to other viral communicable diseases; R53.1 Weakness; S00.03XA Contusion of scalp, initial encounter; Y92.9 Unspecified place or not applicable; M54.2 Cervicalgia; W18.39XA Other fall on same level, initial encounter; R51.9 Headache, unspecified; R10.2 Pelvic and perineal pain; R79.89 Other specified abnormal findings of blood chemistry